=== PATIENT | male | born 1980 | race Caucasian/White ===

== ENCOUNTER 2020-09-07 08:12 | Emergency (ER) | payer SELFPAY ==
[2020-09-07 08:57] LABS: Absolute Lymphocytes (CBC) 1.5 K/uL (0.7-4.9); Basophils % 1.1 % (0-1.3); RBC Red Blood Cell Count 4.69 M/uL (4.33-5.43)
[2020-09-07] MEDS ORDERED: MORPHINE 4 MG/ML SYR ONE ×2 (09:02→11:42)
[2020-09-07] MEDS ORDERED: ONDANSETRON 4 MG/2 ML VIAL ONE (09:02)
[2020-09-07] MEDS ORDERED: NA CHLORIDE 0.9% 1,000 ML ONE (09:03)
[2020-09-07 09:09] LABS: Protime INR 0.92
[2020-09-07 09:21] LABS: ALT/SGPT 26 U/L (12-78); AST/SGOT 15 U/L (15-37); Albumin 3.5 g/dL (3.4-5.0); Alkaline Phosphatase 112 U/L (45-117); BUN Blood Urea Nitrogen 12 mg/dL (7-18); Bicarbonate 30 mmol/L (21-32); Bilirubin Direct < 0.1 mg/dL (0-0.2); Bilirubin Total 0.1 mg/dL (0.2-1.0); Glucose Level 107 mg/dL (74-106); Potassium 4.1 mmol/L (3.5-5.1); Protein, Total 6.9 g/dL (6.4-8.2); Sodium Level 140 mmol/L (136-145)
--- NOTE | 2020-09-07 10:12 | RAD REPORT ---
EXAM DESCRIPTION: CT - Head C Spine Cap Deneen Thomas - 09/07/2020 9:56 am CLINICAL HISTORY: PAIN, trip and fall, head, neck, chest and abdomen pain COMPARISON: No comparisons TECHNIQUE: Axial [address] head images were obtained. Axial [address] cervical spine images were obtaine d with sagittal and coronal reconstruction images reviewed. During dynamic enhancement of 100mL non-i onic contrast, axial 5 mm images of the chest, abdomen and pelvis were obtained. Biphasic technique p erformed of the abdomen and pelvis. All CT scans are performed using dose optimization technique as appropriate and may include automated exposure control or mA/KV adjustment according to patient size. FINDINGS: No intracranial hemorrhage, mass or edema. No midline shift or abnormal fluid collection. Mastoid air cells and paranasal sinuses are clear. No skull fracture. CT cervical spine imaging shows normal height. Normal alignment of the vertebrae. No disc space narro wing. No paraspinal mass or hematoma seen. Central canal detail is inherently limited. Concerns for t raumatic disc herniation or traumatic cord injury can be further addressed with MR imaging. CT chest shows no pneumothorax, pulmonary contusion or pleural fluid collection. No mediastinal hemat aurelio and the aorta and pulmonary arteries are unremarkable. No chest will mass or abnormal axillary fi nding. No acute rib fractures present. Patient has subacute fractures lateral left fifth and sixth ri bs. Callus formation is present around still visible fracture lines. CT abdomen and pelvis show no injury to solid abdominal viscera. Gallbladder and biliary tree are unr emarkable. No bowel injury or significant finding. Fluid distends the stomach. Gastric outlet obstruc tion is not suspected. Moderate stool volume is seen filling the right-side of the colon. No free air , free fluid or abnormal stranding. No urinary bladder abnormality. No other significant bone finding seen. No significant vascular finding. IMPRESSION: No significant CT Head finding. No significant CT Cervical Spine finding. Subacute lateral left fifth and sixth rib fractures. No acute or additional significant chest finding . No significant CT Abdomen and Pelvis finding.
--- NOTE | 2020-09-07 10:20 | EDPHYS ---
Physician Documentation [facility] Name: Matthew Patricia Age: 40 yrs Sex: Male : 1980 Arrival Date: 09/07/2020 Time: 08:27 Bed 13 Private MD: Gamal Medina HPI: 09/07 09:57 This 40 yrs old Male presents to ER via Wheelchair with complaints of Side calli Pain. 09:57 The patient presents with abdominal pain in the upper abdomen, in the lower abdomen. calli Onset: The symptoms/episode began/occurred 2 day(s) ago. The patient or guardian reports chest pain that is located primarily in the anterior chest wall, left supraclavicular area, left clavicle, anterior aspect of left upper chest, left lateral anterior chest, left lateral posterior chest and left breast. Onset: The symptoms/episode began/occurred 1 week(s) ago. The pain does not radiate. Associated signs and symptoms: The patient has no apparent associated signs or symptoms. The chest pain is described as aching. Modifying factors: The symptoms are alleviated by remaining still, rest, the symptoms are aggravated by deep breath, movement. Severity of pain: At its worst the pain was mild today. Historical: - Allergies: 08:32 No Known Allergies; tw2 - Home Meds: 08:32 None [Active]; tw2 - PMHx: 08:32 None; tw2 - PSHx: 08:32 None; left leg surgery; tw2 - Immunization history:: Adult Immunizations. - Social history:: Smoking status: Patient reports the use of cigarette tobacco products, smokes one pack cigarettes per day. Patient uses street drugs, Methamphetamine (Meth) "3 days ago". - Family history:: not pertinent. ROS: 09:57 Constitutional: Negative for fever, chills, and weight loss, Eyes: Negative for injury, calli pain, redness, and discharge, ENT: Negative for injury, pain, and discharge, Neck: Negative for injury, pain, and swelling, Respiratory: Negative for shortness of breath, cough, wheezing, and pleuritic chest pain, Back: Negative for injury and pain, : Negative for injury, bleeding, discharge, and swelling, MS/Extremity: Negative for injury and deformity, Skin: Negative for injury, rash, and discoloration, Neuro: Negative for headache, weakness, numbness, tingling, and seizure, Psych: Negative for depression, anxiety, suicide ideation, homicidal ideation, and hallucinations, Allergy/Immunology: Negative for hives, rash, and allergies, Endocrine: Negative for neck swelling, polydipsia, polyuria, polyphagia, and marked weight changes, Hematologic/Lymphatic: Negative for swollen nodes, abnormal bleeding, and unusual bruising. 09:57 Cardiovascular: Positive for chest pain, with movement, of the left clavicle, anterior aspect of left upper chest, left lateral anterior chest, left lateral posterior chest and left breast. 09:57 Abdomen/GI: Positive for abdominal pain, of the left upper quadrant and left lower quadrant. Exam: 09:57 Constitutional: This is a well developed, well nourished patient who is awake, alert, calli and in no acute distress. Head/Face: Normocephalic, atraumatic. Eyes: Pupils equal round and reactive to light, extra-ocular motions intact. Lids and lashes normal. Conjunctiva and sclera are non-icteric and not injected. Cornea within normal limits. Periorbital areas with no swelling, redness, or edema. ENT: Nares patent. No nasal discharge, no septal abnormalities noted. Tympanic membranes are normal and external auditory canals are clear. Oropharynx with no redness, swelling, or masses, exudates, or evidence of obstruction, uvula midline. Mucous membranes moist. Neck: Trachea midline, no thyromegaly or masses palpated, and no cervical lymphadenopathy. Supple, full range of motion without nuchal rigidity, or vertebral point tenderness. No Meningismus. Cardiovascular: Regular rate and rhythm with a normal S1 and S2. No gallops, murmurs, or rubs. Normal PMI, no JVD. No pulse deficits. Respiratory: Lungs have equal breath sounds bilaterally, clear to auscultation and percussion. No rales, rhonchi or wheezes noted. No increased work of breathing, no retractions or nasal flaring. Back: No spinal tenderness. No costovertebral tenderness. Full range of motion. Male : Normal genitalia with no discharge or lesions. Skin: Warm, dry with normal turgor. Normal color with no rashes, no lesions, and no evidence of cellulitis. MS/ Extremity: Pulses equal, no cyanosis. Neurovascular intact. Full, normal range of motion. Neuro: Awake and alert, GCS 15, oriented to person, place, time, and situation. Cranial nerves II-XII grossly intact. Motor strength 5/5 in all extremities. Sensory grossly intact. Cerebellar exam normal. Normal gait. Psych: Awake, alert, with orientation to person, place and time. Behavior, mood, and affect are within normal limits. 09:57 Chest/axilla: Inspection: no acute changes, Palpation: tenderness, that is mild, that is moderate, of the left lateral anterior chest and left lateral posterior chest. 09:57 Abdomen/GI: Inspection: abdomen appears normal, Bowel sounds: normal, Palpation: mild abdominal tenderness, in the left upper quadrant and left lower quadrant, Liver: no appreciated palpable abnormalities, Hernia: not appreciated. 10:02 ECG was reviewed by the Attending Physician. [facility] Vital Signs: 08:29 BP 112 / 79; Pulse 75; Resp 17; Temp 97.9(TE); Pulse Ox 100% on R/A; Weight 77.11 kg; tw2 Height 5 ft. 10 in. (177.80 cm); Pain 10; 08:29 Body Mass Index 24.39 (77.11 kg, 177.80 cm) tw2 MDM: 08:37 Patient medically screened. [facility] 09/07 08:39 Order name: Acetaminophen; Complete Time: 10:03 [facility] 09/07 08:39 Order name: Basic Metabolic Panel; Complete Time: 10:03 [facility] 09/07 08:39 Order name: CBC with Diff; Complete Time: 10:03 [facility] 09/07 08:39 Order name: ETOH Level; Complete Time: 10:03 [facility] 09/07 08:39 Order name: Hepatic Function; Complete Time: 10:03 [facility] 09/07 08:39 Order name: PT-INR; Complete Time: 10:03 [facility] 09/07 08:39 Order name: Ptt, Activated; Complete Time: 10:03 [facility] 09/07 08:39 Order name: Salicylate; Complete Time: 10:03 [facility] 09/07 08:39 Order name: CT Traumagram (Head C Spine CAP W Con) [facility] 09/07 10:20 Order name: INCENTIVE SPIROMETRY 09/07 08:39 Order name: EKG; Complete Time: 08:40 [facility] 09/07 08:39 Order name: EKG - Nurse/Tech; Complete Time: 09:11 [facility] 09/07 08:39 Order name: IV Saline Lock; Complete Time: [facility] 09/07 08:39 Order name: Labs collected and sent; Complete Time: [facility] EC:02 Rate is 66 beats/min. Rhythm is regular. QRS [place] is Normal. AL interval is normal. QRS calli interval is normal. QT interval is normal. No Q waves. T waves are Normal. No ST changes noted. Clinical impression: NSR w/ Non-specific ST/T Changes and No evidence of ischemia. Administered Medications: 08:50 Drug: NS 0.9% 1000 ml Route: IV; Rate: 1 bolus; Site: right forearm; em 10:00 Follow up: IV Status: Completed infusion; IV Intake: 1000ml em 08:50 Drug: Zofran (Ondansetron) 4 mg Route: IVP; Site: right forearm; em 09:11 Follow up: Response: No adverse reaction em 08:52 Drug: morphine 4 mg Route: IVP; Site: right forearm; em 09:11 Follow up: Response: No adverse reaction em 11:35 Drug: morphine 4 mg Route: IVP; Site: right forearm; em 11:44 Follow up: Response: Medication administered at discharge. em Disposition: 09/07/20 10:19 Discharged to Home. Impression: Fall (on) (from) other stairs and steps, Strain of muscle and tendon of back wall of thorax, Strain of muscle and tendon of front wall of thorax, Contusion of abdominal wall, Multiple fractures of ribs, left side. - Condition is Stable. - Discharge Instructions: Contusion, Chest Wall Pain, Rib Fracture, Incentive Spirometer, Chest Wall Pain, [id number]-im-[id number], Chest Contusion, [id number]-[id number], Rib Fracture, [id number]. - Prescriptions for Ibuprofen 600 mg Oral Tablet - take 1 tablet by ORAL route every 6 hours As needed take with food; 30 tablet. Tylenol- Codeine #3 300-30 mg Oral Tablet - take 2 tablets by ORAL route every 4-6 hours As needed; 20 tablet. Cyclobenzaprine 5 mg Oral Tablet - take 1 tablet by ORAL route 3 times per day As needed; 15 tablet. - Medication Reconciliation Form, Thank You Letter, Antibiotic Education, Prescription Opioid Use form. - Follow up: Private Physician; When: 2 - 3 days; Reason: Recheck today's complaints, Continuance of care, Re-evaluation by your physician. Follow up: Sorin Burgos MD; When: 2 - 3 days; Reason: Recheck today's complaints, Re-evaluation by your physician. - Problem is new. - Symptoms have improved. Signatures: Dispatcher [employer] Gamal Wen MD MD cha Munoz, Edgar, RN RN em Leonie Ashby RN RN tw2 Corrections: (The following items were deleted from the chart) 09:12 08:39 Suicide Screening ([place]) ordered. [facility] 11:35 10:19 09/07/2020 10:19 Discharged to Home. Impression: Fall (on) (from) other stairs em and steps; Strain of muscle and tendon of back wall of thorax; Strain of muscle and tendon of front wall of thorax; Contusion of abdominal wall; Multiple fractures of ribs, left side. Condition is Stable. Discharge Instructions: Contusion, Chest Wall Pain, Chest Wall Pain, [id number]-[id number], Chest Contusion, [id number]-[id number]. Prescriptions for Ibuprofen 600 mg Oral Tablet - take 1 tablet by ORAL route every 6 hours As needed take with food; 30 tablet, Tylenol-Codeine #3 300-30 mg Oral Tablet - take 2 tablets by ORAL route every 4-6 hours As needed; 20 tablet, Cyclobenzaprine 5 mg Oral Tablet - take 1 tablet by ORAL route 3 times per day As needed; 15 tablet. and Forms are Medication Reconciliation Form, Thank You Letter, Antibiotic Education, Prescription Opioid Use. Follow up: Private Physician; When: 2 - 3 days; Reason: Recheck today's complaints, Continuance of care, Re-evaluation by your physician. Follow up: Sorin Burgos; When: 2 - 3 days; Reason: Recheck today's complaints, Re-evaluation by your physician. Problem is new. Symptoms have improved. [facility] 11:45 11:35 09/07/2020 10:19 Discharged to Home. Impression: Fall (on) (from) other stairs em and steps; Strain of muscle and tendon of back wall of thorax; Strain of muscle and tendon of front wall of thorax; Contusion of abdominal wall; Multiple fractures of ribs, left side. Condition is Stable. Discharge Instructions: Contusion, Chest Wall Pain, Chest Wall Pain, Niby-rk-[id number], Chest Contusion, Dplx-[id number], Rib Fracture, Incentive Spirometer, Rib Fracture, [id number]-[id number]. Prescriptions for Ibuprofen 600 mg Oral Tablet - take 1 tablet by ORAL route every 6 hours As needed take with food; 30 tablet, Tylenol-Codeine #3 300-30 mg Oral Tablet - take 2 tablets by ORAL route every 4-6 hours As needed; 20 tablet, Cyclobenzaprine 5 mg Oral Tablet - take 1 tablet by ORAL route 3 times per day As needed; 15 tablet. and Forms are Medication Reconciliation Form, Thank You Letter, Antibiotic Education, Prescription Opioid Use. Follow up: Private Physician; When: 2 - 3 days; Reason: Recheck today's complaints, Continuance of care, Re-evaluation by your physician. Follow up: Sorin Burgos; When: 2 - 3 days; Reason: Recheck today's complaints, Re-evaluation by your physician. Problem is new. Symptoms have improved. em
--- NOTE | 2020-09-07 10:20 | ER ---
Nurse's Notes [facility] Name: Matthew Patricia Age: 40 yrs Sex: Male : 1980 Arrival Date: 09/07/2020 Time: 08:27 Bed 13 Private MD: Diagnosis: Fall (on) (from) other stairs and steps;Strain of muscle and tendon of back wall of thorax;Strain of muscle and tendon of front wall of thorax;Contusion of abdominal wall;Multiple fractures of ribs, left side Presentation: 09/07 08:29 Chief complaint: Patient states: i hurt my ribs on the left side about 3 weeks ago. it tw2 has gotten more and more intense. i was replacing a spicket and i bee came out and when i tried to get away i tripped and landed on a pile of limestone on the left side of my ribs, then this past Sunday i tripped and fell over a bucket. also i slipped on the stairs because of the rain. Coronavirus screen: At this time, the client does not indicate any symptoms associated with coronavirus-19. Ebola Screen: Patient denies travel to an Ebola-affected area in the 21 days before illness onset. Initial Sepsis Screen: Does the patient meet any 2 criteria? No. Patient's initial sepsis screen is negative. Does the patient have a suspected source of infection? No. Patient's initial sepsis screen is negative. Risk Assessment: Do you want to hurt yourself or someone else? Patient reports no desire to harm self or others. Onset of symptoms. 08:29 Method Of Arrival: Wheelchair tw2 08:29 Acuity: NANDA 3 tw2 Triage Assessment: 08:32 General: Appears uncomfortable, slender, Behavior is calm, cooperative, appropriate for tw2 age. Pain: Complains of pain in left side. Historical: - Allergies: 08:32 No Known Allergies; tw2 - Home Meds: 08:32 None [Active]; tw2 - PMHx: 08:32 None; tw2 - PSHx: 08:32 None; left leg surgery; tw2 - Immunization history:: Adult Immunizations. - Social history:: Smoking status: Patient reports the use of cigarette tobacco products, smokes one pack cigarettes per day. Patient uses street drugs, Methamphetamine (Meth) "3 days ago". - Family history:: not pertinent. Screenin:37 Abuse screen: Denies threats or abuse. Nutritional screening: No deficits noted. ss Tuberculosis screening: No symptoms or risk factors identified. Fall Risk Fall in past 12 months (25 points). Assessment: 08:45 General: Appears in no apparent distress. comfortable, Behavior is calm, cooperative, em appropriate for age, Reports denies injury to head, denies LOC and other injuries. Pain: Complains of pain in left lateral anterior chest Pain currently is 10 out of 10 on a pain scale. Neuro: Level of Consciousness is awake, alert, Oriented to person, place, time, situation. Cardiovascular: Capillary refill < 3 seconds Patient's skin is warm and dry. Respiratory: Reports pain with respiration since 3 week ago Airway is patent Respiratory effort is even, unlabored, Respiratory pattern is regular, symmetrical. GI: Abdomen is flat, Reports lower abdominal pain, Patient currently denies nausea. Derm: Skin is intact, is healthy with good turgor, Skin is pink, warm \\T\\ dry. Musculoskeletal: Capillary refill < 3 seconds, Range of motion: intact in all extremities. Vital Signs: 08:29 BP 112 / 79; Pulse 75; Resp 17; Temp 97.9(TE); Pulse Ox 100% on R/A; Weight 77.11 kg; tw2 Height 5 ft. 10 in. (177.80 cm); Pain 10/10; 08:29 Body Mass Index 24.39 (77.11 kg, 177.80 cm) tw2 ED Course: 08:27 Patient arrived in ED. ds1 08:31 Triage completed. tw2 08:32 Arm band placed on. tw2 08:37 Gamal Larose MD is Attending Physician. calli 08:37 Bed in low position. Call light in reach. Pulse ox on. NIBP on. ss 08:40 Yahir Recio, RN is Primary Nurse. em 08:40 Inserted saline lock: 20 gauge in right forearm, using aseptic technique. Blood tw2 collected. 09:09 EKG done, by ED staff, reviewed by Gamal Larose MD. em 09:56 CT Traumagram (Head C Spine CAP W Con) In Process Unspecified. EDMS 10:19 Sorin Burgos MD is Referral Physician. calli 11:43 Primary Nurse role handed off by Yahir Recio, TOAN em Administered Medications: 08:50 Drug: NS 0.9% 1000 ml Route: IV; Rate: 1 bolus; Site: right forearm; em 10:00 Follow up: IV Status: Completed infusion; IV Intake: 1000ml em 08:50 Drug: Zofran (Ondansetron) 4 mg Route: IVP; Site: right forearm; em 09:11 Follow up: Response: No adverse reaction em 08:52 Drug: morphine 4 mg Route: IVP; Site: right forearm; em 09:11 Follow up: Response: No adverse reaction em 11:35 Drug: morphine 4 mg Route: IVP; Site: right forearm; em 11:44 Follow up: Response: Medication administered at discharge. em Intake: 10:00 IV: 1000ml; Total: 1000ml. em Outcome: 10:19 Discharge ordered by . calli 11:35 Patient left the ED. em 11:45 Patient left the ED. em Signatures: Dispatcher [employer] Gamal Wen MD MD cha Munoz, Edgar, RN RN Caro Barnes ds1 Blanca Taylor RN RN ss Wise, Tara, RN RN tw2
[2020-09-07 11:39] VITALS: BP 112/79; TEMP 97.9; O2SAT 100
--- NOTE | 2020-09-09 07:25 | EKG ---
Test Date: 2020-09-07 Test Time: 09:09:01 Folder Tier: ESTEE MEASUREMENT RESULTS: Intervals: Rate: 66 RI: 140 QRSD: 94 QT: 388 QTc: 406 Backus: P: 75 RI: 140 QRS: 79 T: 65 INTERPRETIVE STATEMENTS: Normal sinus rhythm Possible Left atrial enlargement Borderline ECG Compared to ECG 02/07/2013 15:13:29 No significant changes Electronically Signed On 09-09-20 07:18:57 CDT by Andrae Ge
== END 2020-09-07 11:45 | disposition home or self-care (01) ==
LOC: ER 08:12
DX: S22.42XA Multiple fractures of ribs, left side, initial encounter for closed fracture (principal); S29.012A Strain of muscle and tendon of back wall of thorax, initial encounter; S29.011A Strain of muscle and tendon of front wall of thorax, initial encounter; S30.1XXA Contusion of abdominal wall, initial encounter; W10.9XXA Fall (on) (from) unspecified stairs and steps, initial encounter; F17.210 Nicotine dependence, cigarettes, uncomplicated
CPT/HCPCS: 36415; 70450; 71260; 72125; 74177; 80048; 80076; 80320; 80329; 85025; 85610; 85730; 93005; 96361; 96374; 96375; 99284; J2405; J7030; Q9967

== ENCOUNTER 2021-02-18 12:05 | Emergency (ER) | payer SELFPAY ==
--- NOTE | 2021-02-18 13:53 | RAD REPORT ---
EXAM DESCRIPTION: RAD - Elbow Left 2 View - 02/18/2021 1:37 pm CLINICAL HISTORY: PAIN COMPARISON: No comparisons FINDINGS: No acute fracture. No malalignment. No significant focal degenerative changes. IMPRESSION: No acute osseous abnormality involving the left elbow.
--- NOTE | 2021-02-18 13:55 | RAD REPORT ---
EXAM DESCRIPTION: RAD - Foot Right 3 View - 02/18/2021 1:37 pm CLINICAL HISTORY: PAIN COMPARISON: FOOT AP LAT dated 03/10/2011 FINDINGS: Nondisplaced obliquely oriented fracture of the middle third of the calcaneus. The fractur e likely extends to the subtalar joint. There is some lucency within the anterior process of the calc aneus as well. This is not as well characterized . IMPRESSION: Nondisplaced calcaneal fracture. CT could clarify the full extent of the fracture.
[2021-02-18] MEDS ORDERED: HYDROCODONE/APAP 7.5/325 MG TAB ONE (14:55)
--- NOTE | 2021-02-18 14:59 | EDPHYS ---
Physician Documentation [facility] Name: Matthew Patricia Age: 41 yrs Sex: Male : 1980 Arrival Date: 02/18/2021 Time: 12:07 Bed 25 Private MD: ED Physician Gabriel Martin HPI: 02/18 16:06 This 41 yrs old Male presents to ER via Wheelchair with complaints of Foot kb Injury, Elbow Injury. 16:06 The patient presents with pain, that is acute. The complaints affect the left elbow and kb heel of right foot. Context: The problem was sustained outdoors, resulted from the patient falling, from roof, the patient is not able to bear weight, can ambulate using a cane. Onset: The symptoms/episode began/occurred yesterday. Modifying factors: The symptoms are alleviated by nothing. the symptoms are aggravated by weight bearing. Associated signs and symptoms: Pertinent positives: swelling. Treatment prior to arrival includes: no previous treatment. Severity of symptoms: At their worst the symptoms were mild, moderate, in the emergency department the symptoms are unchanged. The patient has not experienced similar symptoms in the past. The patient has not recently seen a physician. Pt states he fell off of a roof yesterday and landed on right heel. States he hasn't been able to bear weight so he wanted to get it checked. Also reports pain to left elbow.. Historical: - Allergies: 12:27 No Known Allergies; jl7 - Home Meds: 12:27 None [Active]; jl7 - PMHx: 12:27 None; jl7 - PSHx: 12:27 left fibula; jl7 - Immunization history:: Client reports having NOT received the Covid vaccine. - Social history:: Smoking status: Patient reports the use of cigarette tobacco products, smokes one-half pack cigarettes per day. ROS: 16:03 Constitutional: Negative for fever, chills, and weight loss. kb 16:03 MS/extremity: Positive for pain, tenderness, of the heel of right foot and left elbow. 16:03 All other systems are negative. Exam: 16:03 Constitutional: This is a well developed, well nourished patient who is awake, alert, kb and in no acute distress. Head/Face: Normocephalic, atraumatic. ENT: Moist Mucous membranes Neck: Trachea midline, no thyromegaly or masses palpated, and no cervical lymphadenopathy. Supple, full range of motion without nuchal rigidity, or vertebral point tenderness. No Meningismus. Respiratory: Respirations even and unlabored. No increased work of breathing, no retractions or nasal flaring. Back: No spinal tenderness. No costovertebral tenderness. Full range of motion. Skin: Warm, dry with normal turgor. Normal color. Neuro: Awake and alert, GCS 15, oriented to person, place, time, and situation. Moves all extremities. Normal gait. Psych: Awake, alert, with orientation to person, place and time. Behavior, mood, and affect are within normal limits. 16:03 Musculoskeletal/extremity: Extremities: grossly normal except: noted in the heel of right foot: pain, swelling, tenderness, noted in the left elbow: pain, ROM: intact in all extremities, Circulation is intact in all extremities. Sensation intact. Weight bearing: is unable to bear weight. Vital Signs: 12:25 BP 110 / 76; Pulse 91; Resp 17; Temp 98.8; Pulse Ox 99% ; Weight 72.57 kg; Height 5 ft. jl7 10 in. (177.80 cm); Pain 7/10; 13:00 BP 117 / 83; Pulse 90; Resp 18; Pulse Ox 100% on R/A; Pain 6/10; ld1 14:49 BP 126 / 80; Pulse 86; Resp 18; Pulse Ox 100% on R/A; ld1 12:25 Body Mass Index 22.96 (72.57 kg, 177.80 cm) jl7 MDM: 12:54 Patient medically screened. kb 16:05 Data reviewed: vital signs, nurses notes. Data interpreted: Pulse oximetry: on room air kb is 100 %. Interpretation: normal. Counseling: I had a detailed discussion with the patient and/or guardian regarding: the historical points, exam findings, and any diagnostic results supporting the discharge/admit diagnosis, radiology results, the need for outpatient follow up, a orthopedic surgeon, to return to the emergency department if symptoms worsen or persist or if there are any questions or concerns that arise at home. 02/18 12:59 Order name: XRAY Foot RIGHT 3 View; Complete Time: 13:59 ld1 02/18 12:59 Order name: XRAY Elbow LEFT 2 view; Complete Time: 13:59 ld1 02/18 14:08 Order name: Short Leg Splint; Complete Time: 14:49 kb 02/18 14:08 Order name: Crutches; Complete Time: 14:49 kb Administered Medications: 14:33 Drug: [place] (HYDROcodone-acetaminophen) (7.5 mg-325 mg) 1 tabs Route: PO; ld1 Disposition: 02/19 12:51 Co-signature as Attending Physician, Gabriel Martin MD I agree with the assessment and kdr plan of care. Disposition Summary: 02/18/21 14:59 Discharge Ordered Location: Home kb Condition: Stable kb Diagnosis - Right nondisplaced calcaneal fracture kb Followup: kb - With: Emergency Department - When: As needed - Reason: Worsening of condition Followup: kb - With: Private Physician - When: 2 - 3 days - Reason: Recheck today's complaints, Continuance of care, Re-evaluation by your physician Discharge Instructions: - Discharge Summary Sheet kb - Calcaneal Fracture Repair Surgery, Care After kb Forms: - Medication Reconciliation Form kb - Thank You Letter kb - Antibiotic Education kb - Prescription Opioid Use kb Prescriptions: - Diclofenac Sodium 75 mg Oral tablet,delayed release (DR/EC) - take 1 tablet by ORAL route 2 times per day As needed; 30 tablet; Refills: 0, kb Product Selection Permitted Signatures: Dispatcher [employer] EDMS Precious Ansari, ECOLOGICAL MODELER-C ECOLOGICAL MODELER-Bolivarb Gabriel Martin MD MD kdr Della Goldstein RN RN jl7 Alda Macias RN RN ld1 Corrections: (The following items were deleted from the chart) 02/18 12:28 12:27 PSHx: None; rajesh jlCruz
--- NOTE | 2021-02-18 14:59 | ER ---
Nurse's Notes [facility] Name: Matthew Patricia Age: 41 yrs Sex: Male : 1980 Arrival Date: 02/18/2021 Time: 12:07 Bed 25 Private MD: Diagnosis: Right nondisplaced calcaneal fracture Presentation: 02/18 12:25 Chief complaint: Patient states: Slid off first story roof yesterday, c/o right foot jl7 pain and left elbow pain, denies pain anywhere else. Coronavirus screen: At this time, the client does not indicate any symptoms associated with coronavirus-19. Ebola Screen: No symptoms or risks identified at this time. Initial Sepsis Screen: Does the patient meet any 2 criteria? No. Patient's initial sepsis screen is negative. Does the patient have a suspected source of infection? No. Patient's initial sepsis screen is negative. Risk Assessment: Do you want to hurt yourself or someone else? Patient reports no desire to harm self or others. Onset of symptoms was February 17, 2021. Care prior to arrival: None. 12:25 Method Of Arrival: Wheelchair jl7 12:25 Acuity: NANDA 4 jl7 Historical: - Allergies: 12:27 No Known Allergies; jl7 - Home Meds: 12:27 None [Active]; jl7 - PMHx: 12:27 None; jl7 - PSHx: 12:27 left fibula; jl7 - Immunization history:: Client reports having NOT received the Covid vaccine. - Social history:: Smoking status: Patient reports the use of cigarette tobacco products, smokes one-half pack cigarettes per day. Screenin:00 Abuse screen: Denies threats or abuse. Denies injuries from another. Nutritional ld1 screening: No deficits noted. Tuberculosis screening: No symptoms or risk factors identified. Fall Risk None identified. Assessment: 13:00 General: Appears in no apparent distress. comfortable, Behavior is calm, cooperative, ld1 appropriate for age. Pain: Complains of pain in right foot and left elbow Pain does not radiate. Pain currently is 7 out of 10 on a pain scale. Quality of pain is described as throbbing, Pain began 1 day ago. Is continuous. Neuro: Level of Consciousness is awake, alert, obeys commands, Oriented to person, place, time, situation. Cardiovascular: Capillary refill < 3 seconds Patient's skin is warm and dry. Respiratory: Airway is patent Respiratory effort is even, unlabored, Respiratory pattern is regular, symmetrical. GI: Abdomen is flat, non-distended. : No signs and/or symptoms were reported regarding the genitourinary system. EENT: No signs and/or symptoms were reported regarding the EENT system. Derm: No signs and/or symptoms reported regarding the dermatologic system. Musculoskeletal: Swelling present in right foot Reports pain in right foot and left elbow. 14:49 Reassessment: Patient appears in no apparent distress at this time. Patient and/or ld1 family updated on plan of care and expected duration. Pain level reassessed. Patient is alert, oriented x 3, equal unlabored respirations, skin warm/dry/pink. Vital Signs: 12:25 BP 110 / 76; Pulse 91; Resp 17; Temp 98.8; Pulse Ox 99% ; Weight 72.57 kg; Height 5 ft. jl7 10 in. (177.80 cm); Pain 7/10; 13:00 BP 117 / 83; Pulse 90; Resp 18; Pulse Ox 100% on R/A; Pain 6/10; ld1 14:49 BP 126 / 80; Pulse 86; Resp 18; Pulse Ox 100% on R/A; ld1 12:25 Body Mass Index 22.96 (72.57 kg, 177.80 cm) jl7 ED Course: 12:07 Patient arrived in ED. as 12:27 Triage completed. jl7 12:27 Arm band placed on right wrist. jl7 12:54 Precious Ansari FNP-C is [facility]. kb 12:54 Gabriel Martin MD is Attending Physician. kb 12:58 Alda Macias, TOAN is Primary Nurse. ld1 13:00 Patient has correct armband on for positive identification. Bed in low position. Call ld1 light in reach. Side rails up X 1. Pulse ox on. NIBP on. Door closed. Noise minimized. 13:00 No provider procedures requiring assistance completed. ld1 13:37 XRAY Foot RIGHT 3 View In Process Unspecified. EDMS 13:37 XRAY Elbow LEFT 2 view In Process Unspecified. EDMS 15:07 Patient did not have IV access during this emergency room visit. ld1 Administered Medications: 14:33 Drug: [place] (HYDROcodone-acetaminophen) (7.5 mg-325 mg) 1 tabs Route: PO; ld1 Outcome: 14:59 Discharge ordered by MD. browne 15:07 Discharged to home ambulatory, with crutches, with family. ld1 15:07 Condition: stable 15:07 Discharge instructions given to patient, family, Instructed on discharge instructions, follow up and referral plans. medication usage, Demonstrated understanding of instructions, follow-up care, medications, Prescriptions given X 1. 15:08 Patient left the ED. ld1 Signatures: Dispatcher [employer] EDWI Precious Ansari, PHOTOGRAPHY EDITOR-C PHOTOGRAPHY EDITOR-Deepa Solorio Jahala RN RN jl7 Alda Macias RN RN ld1 Corrections: (The following items were deleted from the chart) 12:28 12:27 PSHx: None; rajesh jlCruz
[2021-02-18 15:12] VITALS: TEMP 98.8
[2021-02-18 15:13] VITALS: O2SAT 100
[2021-02-18 15:14] VITALS: BP 126/80
== END 2021-02-18 15:08 | disposition home or self-care (01) ==
LOC: ER 12:05
PROC: 2W3QX1Z Immobilization of Right Lower Leg using Splint (ICD-10-PCS; principal; 2021-02-18)
DX: S92.001A Unspecified fracture of right calcaneus, initial encounter for closed fracture (principal); M25.522 Pain in left elbow; W13.2XXA Fall from, out of or through roof, initial encounter; F17.210 Nicotine dependence, cigarettes, uncomplicated
CPT/HCPCS: 99284

== ENCOUNTER 2022-04-16 13:23 | Emergency (ER) | payer SELFPAY ==
--- OUTSIDE RECORDS SUMMARY | 2022-04-16 13:24 | XMS REPORT | Continuity of Care Document ---
:1980 Author Organization [facility] t Address [address] [place] [address] Dr. Raza. [address] [place] [id number] Care Team Providers Name Role Phone Unavailable Unavailable Unavailable Problems This patient has no known problems. Allergies, Adverse Reactions, Alerts This patient has no known allergies or adverse reactions. Medications This patient has no known medications. Procedures This patient has no known procedures. Encounters Start End Encounter Admission Attending Care Care Encounter Source Date/Time Date/Time Type Type Clinicians Facility Department ID 2022-03-01 2022-03-01 Outpatient [facility] [id number] 13:12:45 13:12:45 [id number] [address] [place] Results This patient has no known results.
[2022-04-16] MEDS ORDERED: NA CHLORIDE 0.9% 1,000 ML ONE (14:00)
[2022-04-16] MEDS ORDERED: ASPIRIN 81 MG CHEWABLE TABLET ONE (14:00)
[2022-04-16] MEDS ORDERED: KETOROLAC 30 MG/ML INJ ONE (14:00)
[2022-04-16 14:27] LABS: Absolute Lymphocytes (CBC) 1.6 K/uL (0.7-4.9); Hematocrit 39.2 % (39.6-49.0); Lymphocytes % 28.1 % (15.3-44.8); MPV 8.3 fL (7.6-11.3); RBC Red Blood Cell Count 4.21 M/uL (4.33-5.43)
--- NOTE | 2022-04-16 14:34 | RAD REPORT ---
EXAM DESCRIPTION: RAD - Chest Single View - 04/16/2022 2:28 pm CLINICAL HISTORY: CHEST PAIN COMPARISON: None FINDINGS: Lines: None. Lungs: No evidence of edema or pneumonia. Pleural: No significant pleural effusions or pneumothorax. Cardiac: The heart size is within normal limits. Mediastinum: Within normal limits. Bones: No acute fractures. Other: None IMPRESSION: No acute cardiopulmonary disease.
[2022-04-16 14:39] LABS: Protime INR 0.94
[2022-04-16 14:51] LABS: Magnesium 1.7 mg/dL (1.6-2.4); Potassium 3.8 mmol/L (3.5-5.1); Troponin High Sensitivity 4.2 pg/mL (<58.9)
--- NOTE | 2022-04-16 18:09 | ER ---
Nurse's Notes [facility] Name: Matthew Patricia Age: 42 yrs Sex: Male : 1980 Arrival Date: 04/16/2022 Time: 13:23 Bed 10 Private MD: Diagnosis: Chest pain, unspecified Presentation: 04/16 13:48 Chief complaint: Patient states: Left sided CP since Sunday, moved to left scapular jl7 area, reports pain worse with movement and coughing. Coronavirus screen: Vaccine status: Patient reports being unvaccinated. At this time, the client does not indicate any symptoms associated with coronavirus-19. Ebola Screen: No symptoms or risks identified at this time. Initial Sepsis Screen: Does the patient meet any 2 criteria? No. Patient's initial sepsis screen is negative. Does the patient have a suspected source of infection? No. Patient's initial sepsis screen is negative. Risk Assessment: Do you want to hurt yourself or someone else? Patient reports no desire to harm self or others. Onset of symptoms was April 14, 2022. 13:48 Method Of Arrival: Ambulatory [facility] 13:48 Acuity: NANDA 3 jl7 Triage Assessment: 13:49 General: Appears in no apparent distress. uncomfortable, Behavior is calm, cooperative, jl7 appropriate for age. Pain: Complains of pain in anterior aspect of left upper chest Pain currently is 4 out of 10 on a pain scale. at worst was 10 out of 10 on a pain scale. Cardiovascular: Patient's skin is warm and dry. Historical: - Allergies: 13:49 No Known Allergies; jl7 - Home Meds: 13:49 None [Active]; jl7 - PMHx: 13:49 None; jl7 - PSHx: 13:49 left fibula; jl7 - Immunization history:: Client reports having NOT received the Covid vaccine. - Social history:: Smoking status: Patient reports the use of cigarette tobacco products, smokes one-half pack cigarettes per day. Screenin:49 Abuse screen: Denies threats or abuse. Denies injuries from another. Nutritional hb screening: No deficits noted. Tuberculosis screening: No symptoms or risk factors identified. Fall Risk None identified. Assessment: 14:02 General: Appears in no apparent distress. Behavior is calm, cooperative. Pain: Pain hb currently is 5 out of 10 on a pain scale. at worst was 10 out of 10 on a pain scale. Neuro: Level of Consciousness is awake, alert, obeys commands, Oriented to person, place, time, situation. Cardiovascular: Reports chest pain, Patient's skin is warm and dry. Respiratory: Respiratory effort is even, unlabored, Respiratory pattern is regular, symmetrical. GI: No signs and/or symptoms were reported involving the gastrointestinal system. : No signs and/or symptoms were reported regarding the genitourinary system. EENT: No signs and/or symptoms were reported regarding the EENT system. Derm: Skin is pink, warm \T\ dry. Musculoskeletal: No signs and/or symptoms reported regarding the musculoskeletal system. 15:59 Reassessment: Patient appears in no apparent distress at this time. Patient and/or hb family updated on plan of care and expected duration. Pain level reassessed. Patient is alert, oriented x 3, equal unlabored respirations, skin warm/dry/pink. 17:38 Reassessment: Patient appears in no apparent distress at this time. Patient and/or hb family updated on plan of care and expected duration. Pain level reassessed. Patient is alert, oriented x 3, equal unlabored respirations, skin warm/dry/pink. Vital Signs: 13:48 BP 114 / 71; Pulse 84; Resp 17; Temp 97.9; Pulse Ox 100% on R/A; Weight 81.65 kg; jl7 Height 5 ft. 10 in. (177.80 cm); Pain 4/10; 15:59 BP 103 / 68; Pulse 67; Resp 16; Pulse Ox 99% on R/A; Pain 5/10; hb 17:30 BP 124 / 74; Pulse 65; Resp 15; Pulse Ox 99% on R/A; Pain 3/10; hb 13:48 Body Mass Index 25.83 (81.65 kg, 177.80 cm) jl7 ED Course: 13:23 Patient arrived in ED. am2 13:25 Gamal Ruiz PA is PHCP. cp 13:25 Chris Tomlinson DO is Attending Physician. cp 13:38 Keke Christensen, RN is Primary Nurse. vg1 13:41 Anita Castellano, RN is Primary Nurse. hb 13:49 Triage completed. jl7 13:49 Arm band placed on right wrist. jl7 14:10 Patient maintains SpO2 saturation greater than 95% on room air. hb 14:14 Inserted saline lock: 20 gauge in right antecubital area, using aseptic technique. hb Blood collected. 14:15 XRAY Chest (1 view) Sent. hb 14:30 XRAY Chest (1 view) In Process Unspecified. EDMS 14:49 Patient has correct armband on for positive identification. hb 14:49 No provider procedures requiring assistance completed. hb 18:08 Griffin Ritchie MD is Referral Physician. cp 18:18 IV discontinued, intact, bleeding controlled, No redness/swelling at site. hb Administered Medications: 14:15 Drug: Ketorolac 15 mg Route: IVP; Site: right antecubital; hb 15:00 Follow up: Response: No adverse reaction hb 14:15 Drug: NS 0.9% 1000 ml Route: IV; Rate: 1000 ml/hr; Site: right antecubital; hb 15:22 Follow up: Response: No adverse reaction; IV Status: Completed infusion; IV Intake: hb 1000ml 14:16 Drug: Aspirin Chewable Tablet 324 mg Route: PO; hb 15:10 Follow up: Response: No adverse reaction hb Medication: 14:49 VIS not applicable for this client. hb Intake: 15:22 IV: 1000ml; Total: 1000ml. hb Outcome: 18:08 Discharge ordered by . cp 18:18 Discharged to home ambulatory. hb 18:18 Condition: stable 18:18 Discharge instructions given to patient, Instructed on discharge instructions, follow up and referral plans. medication usage, Demonstrated understanding of instructions, follow-up care, medications, Prescriptions given X 1. 18:19 Patient left the ED. hb Signatures: Dispatcher [employer] EDSD Gamal Ruiz PA PA cp Anita Castellano, RN RN Della Patel RN RN jl7 Vanessa Vaughn Victoria, RN RN vg1
--- NOTE | 2022-04-16 18:09 | EDPHYS ---
Physician Documentation [facility] Name: Matthew Patricia Age: 42 yrs Sex: Male : 1980 Arrival Date: 04/16/2022 Time: 13:23 Bed 10 Private MD: ED Physician Chris Tomlinson HPI: 04/16 13:55 This 42 yrs old Male presents to ER via Ambulatory with complaints of Chest Pain - 2 cp days, Back Pain. 13:55 The patient or guardian reports chest pain that is located primarily in the anterior cp chest wall, left. Onset: 2 day(s) ago. 13:55 The pain radiates to left back. cp 13:55 Associated signs and symptoms: Pertinent negatives: abdominal pain, cough, diaphoresis, cp dizziness, lower extremity pain, lower extremity swelling, shortness of breath, fever. 13:55 The chest pain is described as waxing and waning. cp 13:55 Duration: The patient or guardian reports a single episode, that is still ongoing, and cp worsening. Modifying factors: the symptoms are aggravated by cough, deep breath, movement. Historical: - Allergies: 13:49 No Known Allergies; jl7 - Home Meds: 13:49 None [Active]; jl7 - PMHx: 13:49 None; jl7 - PSHx: 13:49 left fibula; jl7 - Immunization history:: Client reports having NOT received the Covid vaccine. - Social history:: Smoking status: Patient reports the use of cigarette tobacco products, smokes one-half pack cigarettes per day. ROS: 14:00 Constitutional: Negative for body aches, chills, fever, poor PO intake. cp 14:00 Cardiovascular: Positive for chest pain, Negative for edema, palpitations. cp 14:00 Eyes: Negative for injury, pain, redness, and discharge. cp 14:00 ENT: Negative for drainage from ear(s), ear pain, sore throat, difficulty swallowing, difficulty handling secretions. 14:00 Neck: Negative for pain with movement, pain at rest, stiffness. 14:00 Respiratory: Negative for cough, shortness of breath, wheezing. 14:00 Abdomen/GI: Negative for abdominal pain, nausea, vomiting, and diarrhea. 14:00 Back: Positive for radiated pain, of the left scapular area and left subscapular area, Negative for injury or acute deformity, decreased range of motion. 14:00 Neuro: Negative for altered mental status, dizziness, headache, numbness, syncope, weakness. 14:00 All other systems are negative. cp Exam: 14:05 Constitutional: The patient appears in no acute distress, alert, awake. cp 14:05 Head/Face: Normocephalic, atraumatic. cp 14:05 Eyes: Periorbital structures: appear normal, Conjunctiva: normal, no exudate, no cp injection, Sclera: no appreciated abnormality, Lids and lashes: appear normal, bilaterally. 14:05 ENT: External ear(s): are unremarkable, Nose: is normal, Mouth: Lips: moist, Oral mucosa: pink and intact, moist, Posterior pharynx: Airway: no evidence of obstruction, patent. 14:05 Neck: ROM/movement: is normal, is supple, without pain, no range of motions limitations. 14:05 Chest/axilla: Inspection: normal, Palpation: is normal, no crepitus, no tenderness. 14:05 Cardiovascular: Rate: normal, Rhythm: regular. 14:05 Respiratory: the patient does not display signs of respiratory distress, Respirations: normal, no use of accessory muscles, no retractions, labored breathing, is not present, Breath sounds: are clear throughout, no decreased breath sounds, no stridor, no wheezing. 14:05 Abdomen/GI: Inspection: abdomen appears normal, Palpation: abdomen is soft and non-tender, in all quadrants. 14:05 Back: pain, that is mild, of the left scapular area and left subscapular area, ROM is normal. 14:05 Skin: cellulitis, is not appreciated, no rash present. 14:05 Neuro: Orientation: to person, place \T\ time. Mentation: is normal, Cerebellar function: is grossly normal, Motor: moves all fours, strength is normal, Sensation: is normal. 14:42 ECG was reviewed by the Attending Physician. cp 17:17 ECG was reviewed by the Attending Physician. Vital Signs: 13:48 BP 114 / 71; Pulse 84; Resp 17; Temp 97.9; Pulse Ox 100% on R/A; Weight 81.65 kg; jl7 Height 5 ft. 10 in. (177.80 cm); Pain 4/10; 15:59 BP 103 / 68; Pulse 67; Resp 16; Pulse Ox 99% on R/A; Pain 5/10; hb 17:30 BP 124 / 74; Pulse 65; Resp 15; Pulse Ox 99% on R/A; Pain 3/10; hb 13:48 Body Mass Index 25.83 (81.65 kg, 177.80 cm) jl7 MDM: 13:39 Patient medically screened. cp 18:08 The patient was given aspirin in the Emergency Department. cp 18:08 Data reviewed: vital signs, nurses notes, lab test result(s), EKG, radiologic studies, cp plain films. Test interpretation: by ED physician or midlevel provider: ECG, plain radiologic studies. Response to treatment: the patient's symptoms have markedly improved after treatment, Pain improved. Discussed results of labs, EKG and radiology studies. Normal troponin results and normal EKG. Patient with low cardiac risk factors. Will discharge to home and recommend outpatient cardiac f/u. 04/16 13:52 Order name: Basic Metabolic Panel; Complete Time: 15:00 04/16 15:00 Interpretation: Normal except: GLUC 134; CA 8.4. cp 04/16 13:52 Order name: CBC with Diff; Complete Time: 15:00 04/16 15:00 Interpretation: Normal except: RBC 4.21; HGB 13.2; HCT 39.2; EOSINOPHIL % 9.8; BASO% cp 1.7; EOSA 0.6. 04/16 13:52 Order name: D-Dimer; Complete Time: 15:00 cp 04/16 15:29 Interpretation: D-DIMER 430; Reviewed. cp 04/16 13:52 Order name: Magnesium; Complete Time: 15:00 cp 04/16 13:52 Order name: PT-INR; Complete Time: 15:00 cp 04/16 13:52 Order name: Troponin HS; Complete Time: 15:00 04/16 15:29 Interpretation: Within normal limits: Troponin HS 4.2. 04/16 13:52 Order name: XRAY Chest (1 view); Complete Time: 15:00 cp 04/16 13:52 Order name: EKG; Complete Time: 13:52 cp 04/16 13:52 Order name: Cardiac monitoring; Complete Time: 14:15 cp 04/16 13:52 Order name: EKG - Nurse/Tech; Complete Time: 14:44 cp 04/16 17:08 Order name: Troponin High Sensitivity; Complete Time: 18:07 cp 04/16 13:52 Order name: IV Saline Lock; Complete Time: 14:15 cp 04/16 13:52 Order name: Labs collected and sent; Complete Time: 14:15 cp 04/16 13:52 Order name: O2 Per Protocol; Complete Time: 14:15 cp 04/16 13:52 Order name: O2 Sat Monitoring; Complete Time: 14:15 cp 04/16 17:08 Order name: EKG - Nurse/Tech; Complete Time: 17:19 cp EC:42 Rate is 62 beats/min. Rhythm is regular. OR interval is normal. QRS interval is normal. cp QT interval is normal. T waves are Inverted in lead aVR. Interpreted by me. Reviewed by me. 17:17 Rate is 59 beats/min. Rhythm is regular. OR interval is normal. QRS interval is normal. cp QT interval is normal. T waves are Inverted in lead aVR. Interpreted by me. Reviewed by me. Administered Medications: 14:15 Drug: Ketorolac 15 mg Route: IVP; Site: right antecubital; hb 15:00 Follow up: Response: No adverse reaction hb 14:15 Drug: NS 0.9% 1000 ml Route: IV; Rate: 1000 ml/hr; Site: right antecubital; hb 15:22 Follow up: Response: No adverse reaction; IV Status: Completed infusion; IV Intake: hb 1000ml 14:16 Drug: Aspirin Chewable Tablet 324 mg Route: PO; hb 15:10 Follow up: Response: No adverse reaction hb Disposition: 18:09 Co-signature as Attending Physician, Chris CAMPOS was immediately available onsite ms3 in the emergency department for consultation in the care of the patient. Disposition Summary: 04/16/22 18:08 Discharge Ordered Location: Home cp Problem: new cp Symptoms: have improved cp Condition: Stable cp Diagnosis - Chest pain, unspecified cp Followup: cp - With: Griffin Ritchie MD - When: 2 - 3 days - Reason: Recheck today's complaints Discharge Instructions: - Discharge Summary Sheet cp - Nonspecific Chest Pain, Adult cp - Aspirin and Your Heart cp Forms: - Medication Reconciliation Form cp - Thank You Letter cp - Antibiotic Education cp - Prescription Opioid Use cp Prescriptions: - Diclofenac Sodium 75 mg Oral Tablet Sustained Release - take 1 tablet by ORAL route 2 times per day; 30 tablet; Refills: 0, Product cp Selection Permitted Signatures: Dispatcher [employer] Gamal May PA PA cp Baxter, Heather RN RN Della Goldstein RN RN jl7 Chris Tomlinson DO DO ms3 Corrections: (The following items were deleted from the chart) 04/17 16:35 04/16 13:55 Onset: yesterday, cp cp
[2022-04-16 18:36] VITALS: TEMP 97.9
[2022-04-16 18:42] VITALS: O2SAT 99
[2022-04-16 18:44] VITALS: BP 124/74
--- NOTE | 2022-04-17 14:57 | EKG ---
Test Date: 2022-04-16 Test Time: 17:13:18 Electronic Maintenance Supervisor: ELEAZAR MEASUREMENT RESULTS: Intervals: Rate: 59 TN: 154 QRSD: 92 QT: 398 QTc: 394 [place]: P: 74 TN: 154 QRS: 83 T: 68 INTERPRETIVE STATEMENTS: Sinus bradycardia Otherwise normal ECG Compared to ECG 04/16/2022 14:36:43 Sinus rhythm no longer present Electronically Signed On 04-17-22 14:55:20 SURGICAL RESIDENT by Griffin Ritchie
--- NOTE | 2022-04-17 14:58 | EKG ---
Test Date: 2022-04-16 Test Time: 14:36:43 Manager Location: HB MEASUREMENT RESULTS: Intervals: Rate: 62 NE: 144 QRSD: 92 QT: 386 QTc: 391 [place]: P: 70 NE: 144 QRS: 74 T: 62 INTERPRETIVE STATEMENTS: Normal sinus rhythm Possible Left atrial enlargement Borderline ECG Compared to ECG 09/07/2020 09:09:01 No significant changes Electronically Signed On 04-17-22 14:55:27 INSECTICIDE EXPERT by Griffin Ritchie
== END 2022-04-16 18:19 | disposition home or self-care (01) ==
LOC: ER 13:23
DX: R07.89 Other chest pain (principal); F17.210 Nicotine dependence, cigarettes, uncomplicated
CPT/HCPCS: 36415; 71045; 80048; 83735; 84484; 85025; 85379; 85610; 93005; 96361; 96374; 99284; J7030

== ENCOUNTER 2022-09-24 11:26 | Emergency (ER) | payer SELFPAY ==
--- OUTSIDE RECORDS SUMMARY | 2022-09-24 11:29 | XMS REPORT | Continuity of Care Document ---
:1980 [address] [facility] [place] [place] t Address [address] [place] [address] [place] [id number] Care Team Providers Name Role Phone Unavailable [...] Clinicians Facility Department ID 2022-03-01 2022-03-01 Outpatient [facility] [id number] 13:12:45 13:12:45 [id number] [facility] Results This patient has no known results.
[2022-09-24 12:18] LABS: Absolute Lymphocytes (CBC) 1.3 K/uL (0.7-4.9); Hematocrit 43.7 % (39.6-49.0); Lymphocytes % 22.6 % (15.3-44.8); MCV 92.1 fL (80-100); MPV 8.1 fL (7.6-11.3); RBC Red Blood Cell Count 4.74 M/uL (4.33-5.43)
[2022-09-24] MEDS ORDERED: Ringers Lactate 1,000 ML IV ONE (12:21)
[2022-09-24 12:46] LABS: Specific Gravity 1.018 (1.005-1.030); Urine Bilirubin NEGATIVE (Negative); Urine Blood Negative (Negative); Urine Clarity Clear (Clear); Urine Color Yellow (Yellow); Urine Glucose NEGATIVE (Negative); Urine Protein NEGATIVE (Negative); Urine Urobilinogen Normal (Normal); Urine pH 6.5 (5.0-7.0)
[2022-09-24 12:46] LABS: ALT/SGPT 14 U/L (16-61); AST/SGOT 8 U/L (15-37); Albumin 3.6 g/dL (3.4-5.0); Alkaline Phosphatase 88 U/L (45-117); BUN Blood Urea Nitrogen 14 mg/dL (7-18); Bicarbonate 29 mEq/L (21-32); Bilirubin Direct 0.1 mg/dL (0-0.2); Bilirubin Indirect, Calculated 0.1 mg/dL (0.2-0.8); Bilirubin Total 0.2 mg/dL (0.2-1.0); Glomerular Filtration Rate 110 ml/min (=/>90); Glucose Level 108 mg/dL (74-106); Potassium 4.4 mEq/L (3.5-5.1); Protein, Total 6.7 g/dL (6.4-8.2); Sodium Level 135 mEq/L (136-145)
[2022-09-24 12:54] LABS: Barbiturates NEGATIVE (NEGATIVE); Benzodiazepines NEGATIVE (NEGATIVE); Cocaine NEGATIVE (NEGATIVE); METHAMPHETAM POSITIVE (NEGATIVE); Methadone NEGATIVE (NEGATIVE); Opiates NEGATIVE (NEGATIVE); Phencyclidine NEGATIVE (NEGATIVE); THC Cannibis POSITIVE (NEGATIVE)
--- NOTE | 2022-09-24 14:22 | ER ---
Nurse's Notes [facility] Name: Matthew Patricia Age: 42 yrs Sex: Male : 1980 Arrival Date: 09/24/2022 Time: 11:26 Bed 13 Private MD: Diagnosis: Other psychoactive substance abuse, uncomplicated Presentation: 09/24 11:39 Chief complaint: Chief complaint: Patient states: was taking kratom X 1 year, stopped iw taking it two Fridays ago, has not been eating since then, feels light headed when he stands and he missed work. 11:39 Coronavirus screen: At this time, the client does not indicate any symptoms associated iw with coronavirus-19. Ebola Screen: Patient negative for fever greater than or equal to 101.5 degrees Fahrenheit, and additional compatible Ebola Virus Disease symptoms Patient denies exposure to infectious person. Patient denies travel to an Ebola-affected area in the 21 days before illness onset. No symptoms or risks identified at this time. Initial Sepsis Screen: Does the patient meet any 2 criteria? No. Patient's initial sepsis screen is negative. Does the patient have a suspected source of infection? No. Patient's initial sepsis screen is negative. Risk Assessment: Do you want to hurt yourself or someone else? Patient reports no desire to harm self or others. Onset of symptoms was September 14, 2022. 11:39 Method Of Arrival: Ambulatory iw 11:39 Acuity: NANDA 3 iw Historical: - Allergies: 11:42 No Known Allergies; iw - Home Meds: 11:42 None [Active]; iw - PMHx: 11:42 None; iw - PSHx: 11:42 left fibula; iw - Immunization history:: Adult Immunizations unknown. - Social history:: Smoking status: . Screenin:45 [facility] ED Fall Risk Assessment (Adult) Score/Fall Risk Level 0 - 2 = Low Risk. Abuse eh3 screen: Denies threats or abuse. Denies injuries from another. Nutritional screening: No deficits noted. Tuberculosis screening: No symptoms or risk factors identified. Assessment: 11:45 General: Appears in no apparent distress. uncomfortable, Behavior is calm, cooperative, eh3 appropriate for age. Pain: Denies pain. Neuro: Level of Consciousness is awake, alert, obeys commands, Oriented to person, place, time, situation. Cardiovascular: Capillary refill < 3 seconds Patient's skin is warm and dry. Respiratory: Airway is patent Respiratory effort is even, unlabored, Respiratory pattern is regular, symmetrical. GI: Abdomen is round non-distended. : No signs and/or symptoms were reported regarding the genitourinary system. EENT: No signs and/or symptoms were reported regarding the EENT system. Derm: Skin is pink, warm \T\ dry. Musculoskeletal: Circulation, motion, and sensation intact. 12:30 Reassessment: Patient appears in no apparent distress at this time. Patient and/or eh3 family updated on plan of care and expected duration. Pain level reassessed. Patient is alert, oriented x 3, equal unlabored respirations, skin warm/dry/pink. 13:30 Reassessment: Patient appears in no apparent distress at this time. Patient and/or eh3 family updated on plan of care and expected duration. Pain level reassessed. Patient is alert, oriented x 3, equal unlabored respirations, skin warm/dry/pink. Vital Signs: 11:39 BP 128 / 82; Pulse 78; Resp 16; Temp 97.9; Pulse Ox 98% on R/A; Weight 70.31 kg; Height iw 5 ft. 10 in. ; Pain 0/10; 12:30 BP 111 / 78; Pulse 68; Resp 16; Pulse Ox 100% on R/A; eh3 13:30 BP 120 / 84; Pulse 66; Resp 16; Pulse Ox 100% on R/A; eh3 14:00 BP 116 / 78; Pulse 67; Resp 16; Pulse Ox 99% on R/A; eh3 11:39 Body Mass Index 22.24 (70.31 kg, 177.8 cm) iw 11:39 Pain Scale: Adult iw ED Course: 11:27 Patient arrived in ED. rg4 11:35 Yann Angel PA is PHCP. bri 11:36 Terence Negrete MD is Attending Physician. jmm 11:42 Triage completed. iw 11:42 Arm band placed on. iw 11:43 Yamile Mcgowan, TOAN is Primary Nurse. eh3 11:45 Patient has correct armband on for positive identification. Bed in low position. Call 3 light in reach. Side rails up X2. Pulse ox on. NIBP on. Door closed. Noise minimized. Lights dimmed. Warm blanket given. 12:10 Inserted saline lock: 20 gauge in right antecubital area, using aseptic technique. 3 Blood collected. 12:37 Urine Drug Screen Sent. eh3 12:37 Urinalysis w/ reflexes Sent. eh3 14:23 No provider procedures requiring assistance completed. IV discontinued, intact, eh3 bleeding controlled, No redness/swelling at site. Pressure dressing applied. Administered Medications: 12:29 Drug: Lactated Ringers Solution IV 1000 ml Route: IV; Rate: 1000 bolus; Site: right eh3 antecubital; 13:44 Follow up: IV Status: Completed infusion; IV Intake: 1000ml 3 Medication: 14:23 VIS not applicable for this client. 3 Intake: 13:44 IV: 1000ml; Total: 1000ml. 3 Outcome: 14:21 Discharge ordered by . bri 14:23 Discharged to home ambulatory. 3 14:23 Condition: stable 14:23 Discharge instructions given to patient, Instructed on discharge instructions, follow up and referral plans. medication usage, Demonstrated understanding of instructions, follow-up care, medications, Prescriptions given X 1. 14:30 Patient left the ED. 3 Signatures: Yann Angel PA PA jmm Williams, Irene, RN RN iw Jumana Christensen 4 Yamile Mcgowan, RN RN 3 Corrections: (The following items were deleted from the chart) 11:42 11:39 Chief complaint: xavi hurley
--- NOTE | 2022-09-24 14:22 | EDPHYS ---
Physician Documentation [facility] Name: Matthew Patricia Age: 42 yrs Sex: Male : 1980 Arrival Date: 09/24/2022 Time: 11:26 Bed 13 Private MD: ED Physician Terence Negrete Historical: - Allergies: 09/24 11:42 No Known Allergies; iw - Home Meds: 11:42 None [Active]; iw - PMHx: 11:42 None; iw - PSHx: 11:42 left fibula; iw - Immunization history:: Adult Immunizations unknown. - Social history:: Smoking status: . Vital Signs: 11:39 BP 128 / 82; Pulse 78; Resp 16; Temp 97.9; Pulse Ox 98% on R/A; Weight 70.31 kg; Height iw 5 ft. 10 in. ; Pain 0/10; 12:30 BP 111 / 78; Pulse 68; Resp 16; Pulse Ox 100% on R/A; eh3 13:30 BP 120 / 84; Pulse 66; Resp 16; Pulse Ox 100% on R/A; eh3 14:00 BP 116 / 78; Pulse 67; Resp 16; Pulse Ox 99% on R/A; eh3 11:39 Body Mass Index 22.24 (70.31 kg, 177.8 cm) iw 11:39 Pain Scale: Adult iw MDM: 11:41 Patient medically screened. [facility] 09/24 11:43 Order name: Acetaminophen; Complete Time: 12:50 [facility] 09/24 11:43 Order name: Basic Metabolic Panel; Complete Time: 12:50 [facility] 09/24 11:43 Order name: CBC with Diff; Complete Time: 12:21 [facility] 09/24 11:43 Order name: ETOH Level; Complete Time: 12:32 [facility] 09/24 11:43 Order name: Hepatic Function; Complete Time: 12:50 [facility] 09/24 11:43 Order name: PT-INR; Complete Time: 12:37 [facility] 09/24 11:43 Order name: Ptt, Activated; Complete Time: 12:37 [facility] 09/24 11:43 Order name: Salicylate; Complete Time: 12:45 [facility] 09/24 11:43 Order name: Urinalysis w/ reflexes; Complete Time: 12:50 [facility] 09/24 11:43 Order name: Urine Drug Screen; Complete Time: 12:58 [facility] 09/24 11:43 Order name: EKG; Complete Time: 11:43 [facility] 09/24 11:43 Order name: EKG - Nurse/Tech; Complete Time: 12:11 [facility] 09/24 11:43 Order name: IV Saline Lock; Complete Time: 12:11 [facility] 09/24 11:43 Order name: Labs collected and sent; Complete Time: 12:11 [facility] Administered Medications: 12:29 Drug: Lactated Ringers Solution IV 1000 ml Route: IV; Rate: 1000 bolus; Site: right 3 antecubital; 13:44 Follow up: IV Status: Completed infusion; IV Intake: 1000ml eh3 Disposition Summary: 09/24/22 14:21 Discharge Ordered Location: Home [facility] Condition: Stable [facility] Diagnosis - Other psychoactive substance abuse, uncomplicated [facility] Followup: [facility] - With: Private Physician - When: 2 - 3 days - Reason: Recheck today's complaints, Continuance of care, Re-evaluation by your physician Discharge Instructions: - Discharge Summary Sheet [facility] Forms: - Medication Reconciliation Form [facility] - Thank You Letter [facility] - Antibiotic Education [facility] - Prescription Opioid Use [facility] Prescriptions: - ondansetron 4 mg Oral Tablet,disintegrating - take 1 tablet by ORAL route every 4-6 hours As needed; 30 tablet; Refills: 0, [facility] Product Selection Permitted Signatures: Dispatcher [employer] Yann Johansen PA PA [facility] Paulina Watson, RN TOAN Yamile Mcgowan RN RN 3
[2022-09-24 14:40] VITALS: TEMP 97.9
[2022-09-24 14:59] VITALS: BP 116/78; O2SAT 99
== END 2022-09-24 14:30 | disposition home or self-care (01) ==
LOC: ER 11:26
DX: F19.10 Other psychoactive substance abuse, uncomplicated (principal)
CPT/HCPCS: 36415; 80048; 80076; 80307; 81003; 85025; 85610; 85730; 93005; G0480; J7120

== ENCOUNTER 2024-12-16 16:01 | Inpatient (IN) | payer OTHER, SELFPAY ==
[2024-12-16] MEDS: AZITHROMYCIN IV 500 MG in NA CHLORIDE 0.9% 250 ML IVPB SCH (09:00)
--- OUTSIDE RECORDS SUMMARY | 2024-12-16 16:02 | XMS REPORT | Continuity of Care Document ---
Author Name Unknown Address [address] [place] [address] [address] [place], [place] [id number] [place] [address] [place] [address] [address] [place] [address] Care Team Providers Care Water Leak Repairer Name Role Phone Unavailable Unavailable Unavailable Encounters Start Date/Time End Date/Time Encounter Type Admission Type Attending Clinicians Care Facility Care Department Encounter ID Source 2022-03-01 13:12:45 2022-03-01 13:12:45 Outpatient [facility] [id number] Mark Csatle
[2024-12-16] MEDS ORDERED: ONDANSETRON 4 MG/2 ML VIAL ONE ×2 (16:55→19:58)
[2024-12-16] MEDS ORDERED: MORPHINE 4 MG/ML SYR ONE ×2 (16:55→19:58)
[2024-12-16] MEDS ORDERED: NA CHLORIDE 0.9% 1,000 ML ONE (16:55)
[2024-12-16 17:02] LABS: Absolute Lymphocytes (CBC) 0.7 K/uL (0.7-4.9); Hematocrit 49.2 % (39.6-49.0); Hemoglobin 16.6 g/dL (13.6-17.9); MCH 29.8 pg (27.0-35.0); MCHC 33.8 g/dL (32.0-36.0); MCV 88.2 fL (80-100); MPV 8.3 fL (7.6-11.3); Nucleated RBC Absolute Count 0.0 (0-0); Nucleated Red Blood Cells % 0.1 % (0-0); RBC Red Blood Cell Count 5.58 M/uL (4.33-5.43); White Blood Count 11.20 thou/uL (4.3-10.9)
[2024-12-16 17:27] LABS: ALT/SGPT 36.0 U/L (16-61); AST/SGOT 17.0 U/L (15-37); Albumin 4.4 g/dL (3.4-5.0); Albumin/Globulin Ratio 1.2 (1.1-1.8); Alkaline Phosphatase 110.0 U/L (45-117); Anion Gap 9.1 mEq/L (5.0-15.0); BUN Blood Urea Nitrogen 15.0 mg/dL (7-18); Globulin 3.8 g/dL (2.3-3.5); Glucose Level 131.0 mg/dL (74-106); Lipase 15.0 U/L (13-75); Potassium 4.1 mEq/L (3.5-5.1)
--- NOTE | 2024-12-16 18:20 | RAD REPORT ---
EXAMINATION: CT Abdomen Pelvis W Contrast CLINICAL INDICATION: Male, 44 years old. ABD PAIN TECHNIQUE: CT abdomen and pelvis was performed, after the administration of IV contrast, as per [facility]. Axial, sagittal and coronal reconstructions were obtained. One or more of the following dose reduction techniques were used: Automated exposure control, adjustment of the mA and k V according to patient size, and iterative reconstruction. Unless otherwise specified, incidental findings do not require dedicated imaging follow-up. COMPARISON: No prior exam. FINDINGS: LOWER CHEST: Patchy confluent subselected opacification in the posterior right lower lobe, incomplete ly imaged. LIVER: Normal in size and contour. No focal lesion. BILIARY SYSTEM: No suspicious abnormalities. SPLEEN: Normal size. No focal lesion. PANCREAS: No mass, ductal dilation, or akira-pancreatic fluid. ADRENALS: Normal; no mass. KIDNEYS: Normal size and contour. No hydronephrosis. URINARY BLADDER: Unremarkable. GASTROINTESTINAL TRACT: Marked stomach distention. Diffuse small bowel distention with air-fluid leve ls, and gradual tapering of bowel caliber at the level of the terminal ileum. No evidence of free air, significant intra-abdominal free fluid, or abscess. APPENDIX: Normal appendix. LYMPH NODES: No lymphadenopathy. MUSCULOSKELETAL: No acute or suspicious osseous abnormality. ADDITIONAL FINDINGS: None. IMPRESSION: confluent subselected opacification in the posterior right lower lobe, incompletely imaged, concernin g for pneumonia. Diffuse small bowel distention with air-fluid levels, and gradual tapering of bowel caliber at the le jemal of the terminal ileum, concerning for ileus.
[2024-12-16 18:26] LABS: Blood Morphology Comment NOT SEEN (NOT SEEN); White Blood Cell Scan OK (OK)
[2024-12-16] MEDS ORDERED: AZITHROMYCIN 500 MG INJ IVPB ONE (18:53)
[2024-12-16] MEDS ORDERED: NA CHLORIDE 0.9% 250 ML ONE (18:53)
--- NOTE | 2024-12-16 19:56 | RAD REPORT ---
EXAMINATION: TWO VIEW CHEST XR CLINICAL INDICATION: Male, 44 years old. [facility] MAIN COUGH Bed Name: TECHNIQUE: 2 view radiographs of the chest were performed. COMPARISON: 04/16/2022 FINDINGS: The lungs are well inflated and clear. No pneumothorax or sizable effusion. The heart is normal in si ze. Mediastinal contours are unremarkable. IMPRESSION: No acute or significant abnormalities.
--- NOTE | 2024-12-16 20:00 | EDPHYS ---
Physician Documentation [facility] Name: Matthew Patricia Age: 44 yrs Sex: Male : 1980 Arrival Date: 12/16/2024 Time: 16:01 Bed 16 Private MD: ED Physician Shan Daigle HPI: 12/16 19:53 This 44 yrs old Male presents to ER via Ambulatory with complaints of dr5 Abdominal Pain. 19:53 The patient presents with abdominal pain. Onset: The symptoms/episode began/occurred 3 dr5 day(s) ago. The symptoms are described as sharp. Patient is a 44-year-old male with no past medical history diffuse abdominal pain diarrhea for the past 2 to 3 days. Patient denies nausea or vomiting. Patient reports that he has been attempting to drink water which makes his pain worse.. Historical: - Allergies: 16:17 No Known Allergies; hb - Home Meds: 16:17 None [Active]; hb - PMHx: 16:17 Liver Failure; hb - PSHx: 16:17 left fibula; hb - Immunization history:: Adult Immunizations unknown. - Infectious Disease History:: Denies. - Social history:: Smoking status: Patient denies any tobacco usage or history of. ROS: 19:53 Constitutional: as per hpi dr5 Exam: 19:53 Constitutional: This is a well developed, well nourished patient who is awake, alert, dr5 and in no acute distress. Head/Face: Normocephalic, atraumatic. Eyes: Pupils equal round and reactive to light, extra-ocular motions intact. Lids and lashes normal. Conjunctiva and sclera are non-icteric and not injected. Cornea within normal limits. Periorbital areas with no swelling, redness, or edema. Chest/axilla: Normal chest wall appearance and motion. Nontender with no deformity. No lesions are appreciated. Cardiovascular: Regular rate and rhythm with a normal S1 and S2. Normal PMI, no JVD. No pulse deficits. Respiratory: Lungs have equal breath sounds bilaterally, clear to auscultation. No rales, rhonchi or wheezes noted. No increased work of breathing, no retractions or nasal flaring. Abdomen/GI: Generalized tenderness to palpation. Nondistended. Back: No spinal tenderness. No costovertebral tenderness. Full range of motion. Skin: Warm, dry with normal turgor. Normal color with no rashes, no lesions, and no evidence of cellulitis. MS/ Extremity: Pulses equal, no cyanosis. Neurovascular intact. Full, normal range of motion. Neuro: Awake and alert, GCS 15, oriented to person, place, time, and situation. Cranial nerves II-XII grossly intact. Motor strength 5/5 in all extremities. Sensory grossly intact. Cerebellar exam normal. Normal gait. Vital Signs: 16:17 BP 130 / 91; Pulse 76; Resp 18; Temp 97.1(TE); Pulse Ox 100% ; Weight 74.84 kg; Height hb 5 ft. 10 in. ; Pain 9/10; 17:03 BP 121 / 77; Pulse 53; Resp 16; Pulse Ox 100% ; db 17:45 BP 103 / 81; Pulse 62; Resp 16; Pulse Ox 100% ; db 18:00 BP 107 / 78; Pulse 61; Resp 16; Pulse Ox 100% on R/A; db 19:30 BP 120 / 86; Pulse 67; Resp 18; Pulse Ox 100% on R/A; ss12 20:00 BP 100 / 71; Pulse 66; Resp 18 S; Pulse Ox 100% on R/A; ss12 21:30 BP 99 / 64; Pulse 68; Resp 16 S; Pulse Ox 99% on R/A; ss12 16:17 Body Mass Index 23.67 (74.84 kg, 177.8 cm) hb 16:17 Pain Scale: Adult hb MDM: 16:03 Medical Screening Exam initiated dr5 19:53 Differential diagnosis: appendicitis, bowel obstruction, diverticulitis, gastritis, dr5 gastroesophageal reflux disease, GI Bleed. Data reviewed: vital signs, nurses notes, lab test result(s), CBC, white blood cell count, hemoglobin, hematocrit, platelets, electrolytes, sodium, potassium, chloride, serum bicarbonate, BUN, creatinine, serum glucose. 19:57 Consideration of Admission/Observation Patient was admitted/placed on observation. dr5 Management of patient was discussed with the following: Hospitalist: Dr. Charles. Call Center Team Leader: Spoke with Dr. Melgar. Recommended NG tube if patient begins to vomit. N.p.o. and IV antibiotics. Ramón will see tomorrow. I considered the following discharge prescriptions or medication management in the emergency department I discussed and recommended Over The Counter medications, Medications were administered in the Emergency Department. See MAR. Care significantly affected by the following Social Determinants of Health: Poor access to healthcare and/or lack of insurance, Poor access to transportation, Problems related to employment. Counseling: I had a detailed discussion with the patient and/or guardian regarding the historical points, exam findings, and any diagnostic results supporting the discharge/admit diagnosis, the presence of at least one elevated blood pressure reading (>120/80) during this emergency department visit, lab results, radiology results, the need for further work-up and treatment in the hospital. Medication response: morphine relieved the patient's pain. Symptoms have resolved, Zofran relieved the patient's nausea. ED course: Will admit patient for pneumonia as well as ileus. Will give IV antibiotics, blood cultures. 12/16 16:20 Order name: CK; Complete Time: 17:30 hb 12/16 16:20 Order name: UA Rfx Hunter Cult if indicated 12/16 16:21 Order name: CBC with Diff; Complete Time: 18:26 12/16 16:21 Order name: CMP; Complete Time: 17:30 12/16 16:21 Order name: Lipase; Complete Time: 17:30 12/16 17:18 Order name: CBC Smear Scan; Complete Time: 18:26 [facility] 12/16 18:32 Order name: Blood Culture Adult (2) dr5 12/16 18:33 Order name: Lactate w/ 2H reflex if indic.; Complete Time: 19:22 dr5 12/16 21:36 Order name: CBC with Automated Diff [facility] 12/16 21:36 Order name: CBC with Automated Diff [facility] 12/16 21:36 Order name: Comprehensive Metabolic Panel [facility] 12/16 21:36 Order name: Comprehensive Metabolic Panel [facility] 12/16 16:21 Order name: CT Abd/Pelvis - IV Contrast Only; Complete Time: 18:24 hb 12/16 18:25 Order name: Chest Pa And Lat (2 Views) XRAY; Complete Time: 19:59 dr5 12/16 21:36 Order name: CONS Physician Consult [facility] 12/16 16:21 Order name: IV Saline Lock; Complete Time: 16:49 hb 12/16 16:21 Order name: Labs collected and sent; Complete Time: 16:49 hb Administered Medications: 17:00 Drug: Ondansetron IVP 4 mg IVP once; over 2 minutes Route: IVP; Site: right antecubital;db 18:14 Follow up: Response: No adverse reaction db 17:00 Drug: morphine IVP or IV 4 mg IVP once over 4 mins Route: IVP; Infused Over: 4 mins; db Site: right antecubital; 18:14 Follow up: Response: No adverse reaction; Pain is decreased db 17:00 Drug: NS 0.9% IV 1000 ml IV at 1 bolus Per protocol; to be given as a bolus over 60 db minutes Route: IV; Rate: 1 bolus; Site: right antecubital; 19:05 Follow up: Response: No adverse reaction; IV Status: Completed infusion; IV Intake: db 1000ml 18:55 Drug: AZITHromycin IVPB 500 mg IVPB once over 1 hrs; (mix in 250 mL NS) Route: IVPB; db Infused Over: 1 hrs; Site: right antecubital; 21:39 Follow up: IV Status: Completed infusion ss12 21:39 Follow up: IV Status: Infusion continued; IV Intake: 250ml ss12 19:56 Drug: morphine IVP or IV 4 mg IVP once over 4 mins Route: IVP; Infused Over: 4 mins; ss12 Site: right antecubital; 21:39 Follow up: Response: No change in condition; Anxiety decreased ss12 19:56 Drug: Ondansetron IVP 4 mg IVP once; over 2 minutes Route: IVP; Site: right antecubital;ss12 21:39 Follow up: Response: No adverse reaction; Nausea is decreased ss12 Disposition Summary: 12/16/24 20:00 Hospitalization Ordered Notes: Hospitalization Status: Inpatient Admission dr5 Provider: Joaquin Charles dr5 Location: Telemetry/MedSurg (Inpatient) dr5 Condition: Stable dr5 Problem: new dr5 Symptoms: have worsened dr5 Bed/Room Type: Standard dr5 Room Assignment: 431(12/16/24 21:54) eb1 Diagnosis - Ileus, unspecified dr5 - Abdominal pain, Generalized dr5 Forms: - Medication Reconciliation Form dr5 - SBAR form dr5 - Leadership Thank You Letter dr5 Signatures: Dispatcher [employer] EDAnita Meadows RN RN hb Basinger, Emily RN RN eb1 Teetee Mast RN RN db Zeynep Lee [facility] TELEPHONE INTERVIEWER-C TELEPHONE INTERVIEWER-Cdr5 Terri Murray, RN RN ss12 Corrections: (The following items were deleted from the chart) 18:25 18:25 Chest Pa And Lat (2 Views)+RAD.RAD.BRZ ordered. EDMS EDMS 18:33 18:33 BLOOD CULTURE*+BA.LAB.BRZ ordered. EDMS EDMS 21:42 20:00 [facility] kmf 21:54 21:[address] [place] [address]
--- NOTE | 2024-12-16 20:00 | ER ---
Nurse's Notes [facility] Name: Matthew Patricia Age: 44 yrs Sex: Male : 1980 Arrival Date: 12/16/2024 Time: 16:01 Bed 16 Private MD: Diagnosis: Ileus, unspecified;Abdominal pain, Generalized Presentation: 12/16 16:16 Chief complaint: Diffuse abdominal pain and diarrheax 2-3 days. Coronavirus screen: At this time, the client does not indicate any symptoms associated with coronavirus-19. Ebola Screen: No symptoms or risks identified at this time. Initial Sepsis Screen: Does the patient meet any 2 criteria? No. Patient's initial sepsis screen is negative. Does the patient have a suspected source of infection? No. Patient's initial sepsis screen is negative. Risk Assessment: Do you want to hurt yourself or someone else? Patient reports no desire to harm self or others. Onset of symptoms was December 14, 2024. 16:16 Method Of Arrival: Ambulatory hb 16:16 Acuity: NANDA 3 hb Historical: - Allergies: 16:17 No Known Allergies; hb - Home Meds: 16:17 None [Active]; hb - PMHx: 16:17 Liver Failure; hb - PSHx: 16:17 left fibula; hb - Immunization history:: Adult Immunizations unknown. - Infectious Disease History:: Denies. - Social history:: Smoking status: Patient denies any tobacco usage or history of. Screenin:07 [facility] ED Fall Risk Assessment (Adult) History of falling in the last 3 months, db including since admission No falls in past 3 months (0 pts) Confusion or Disorientation No (0 pts) Intoxicated or Sedated No (0 pts) Impaired Gait No (0 pts) Mobility Assist Device Used No (0 pt) Altered Elimination No (0 pt) Score/Fall Risk Level 0 - 2 = Low Risk Oriented to surroundings, Maintained a safe environment. Abuse screen: Denies threats or abuse. Denies injuries from another. Nutritional screening: No deficits noted. Tuberculosis screening: No symptoms or risk factors identified. Assessment: 16:33 Reassessment: Patient and/or family updated on plan of care and expected duration. Pain ll1 level reassessed. 17:30 Reassessment: Patient appears in no apparent distress at this time. Patient and/or db family updated on plan of care and expected duration. Pain level reassessed. Patient is alert, oriented x 3, equal unlabored respirations, skin warm/dry/pink. General: Appears in no apparent distress. comfortable, Behavior is calm, cooperative. Pain: Complains of pain in abdomen. 18:30 Reassessment: Patient appears in no apparent distress at this time. Patient and/or db family updated on plan of care and expected duration. Pain level reassessed. Patient is alert, oriented x 3, equal unlabored respirations, skin warm/dry/pink. Patient states feeling better. Patient states symptoms have improved. General: Appears in no apparent distress. comfortable, Behavior is calm, cooperative. Neuro: Level of Consciousness is awake, alert, obeys commands, Oriented to person, place, time, situation. GI:. 19:39 Reassessment:. General: Appears in no apparent distress. comfortable, Behavior is ss12 restless. Pain: Complains of pain in abdomen Pain does not radiate. Pain currently is 8 out of 10 on a pain scale. Quality of pain is described as aching, squeezing. Neuro: Level of Consciousness is awake, alert, obeys commands, Oriented to person, place, time, situation. Cardiovascular: No deficits noted. Patient's skin is warm and dry. Respiratory: No deficits noted. Airway is patent Respiratory effort is even, unlabored, Respiratory pattern is regular, symmetrical. GI: No deficits noted. No signs and/or symptoms were reported involving the gastrointestinal system. : No deficits noted. No signs and/or symptoms were reported regarding the genitourinary system. EENT: No deficits noted. No signs and/or symptoms were reported regarding the EENT system. Derm: No deficits noted. No signs and/or symptoms reported regarding the dermatologic system. Musculoskeletal: No deficits noted. No signs and/or symptoms reported regarding the musculoskeletal system. 20:04 GI: Abdomen is flat, non-distended, Bowel sounds present in right upper quadrant, left ss12 upper quadrant and right lower quadrant Abd is soft and non tender in right upper quadrant, left upper quadrant and right lower quadrant. 21:00 Reassessment: Patient appears in no apparent distress at this time. Patient and/or ss12 family updated on plan of care and expected duration. Pain level reassessed. Patient is alert, oriented x 3, equal unlabored respirations, skin warm/dry/pink. Patient states feeling better. Vital Signs: 16:17 BP 130 / 91; Pulse 76; Resp 18; Temp 97.1(TE); Pulse Ox 100% ; Weight 74.84 kg; Height hb 5 ft. 10 in. ; Pain 9/10; 17:03 BP 121 / 77; Pulse 53; Resp 16; Pulse Ox 100% ; db 17:45 BP 103 / 81; Pulse 62; Resp 16; Pulse Ox 100% ; db 18:00 BP 107 / 78; Pulse 61; Resp 16; Pulse Ox 100% on R/A; db 19:30 BP 120 / 86; Pulse 67; Resp 18; Pulse Ox 100% on R/A; ss12 20:00 BP 100 / 71; Pulse 66; Resp 18 S; Pulse Ox 100% on R/A; ss12 21:30 BP 99 / 64; Pulse 68; Resp 16 S; Pulse Ox 99% on R/A; ss12 16:17 Body Mass Index 23.67 (74.84 kg, 177.8 cm) hb 16:17 Pain Scale: Adult hb ED Course: 16:03 Patient arrived in ED. cj3 16:03 [facility]C [facility] 16:03 Shan Daigle MD is Attending Physician. dr5 16:17 Triage completed. hb 16:18 Arm band placed on. hb 16:29 Radiology exam delayed due to lab results not completed at this time. (BUN/Creatinine) jc4 IV insertion attempt and/or patient not having appropriate IV at this time. 16:33 Patient placed in an exam room, on a stretcher. ll1 16:48 Teetee Mast, RN is Primary Nurse. db 16:48 Initial lab(s) drawn, sent to lab. Inserted saline lock: 22 gauge in right antecubital db area, using aseptic technique. Blood collected. Flushed with 10 mL NS. 16:[address] via wheelchair. db 17:00 Patient moved back from CT. db 17:01 CT Abd/Pelvis - IV Contrast Only In Process Unspecified. EDMS 18:55 Patient moved back from radiology. db 18:56 Chest Pa And Lat (2 Views) XRAY In Process Unspecified. EDMS 19:50 Patient has correct armband on for positive identification. Provided Education on: plan ss12 of care. 19:50 No provider procedures requiring assistance completed. ss12 19:59 Joaquin Charles MD is Hospitalizing Provider. dr5 23:20 Patient admitted, IV remains in place. ss12 Administered Medications: 17:00 Drug: Ondansetron IVP 4 mg IVP once; over 2 minutes Route: IVP; Site: right antecubital;db 18:14 Follow up: Response: No adverse reaction db 17:00 Drug: morphine IVP or IV 4 mg IVP once over 4 mins Route: IVP; Infused Over: 4 mins; db Site: right antecubital; 18:14 Follow up: Response: No adverse reaction; Pain is decreased db 17:00 Drug: NS 0.9% IV 1000 ml IV at 1 bolus Per protocol; to be given as a bolus over 60 db minutes Route: IV; Rate: 1 bolus; Site: right antecubital; 19:05 Follow up: Response: No adverse reaction; IV Status: Completed infusion; IV Intake: db 1000ml 18:55 Drug: AZITHromycin IVPB 500 mg IVPB once over 1 hrs; (mix in 250 mL NS) Route: IVPB; db Infused Over: 1 hrs; Site: right antecubital; 21:39 Follow up: IV Status: Completed infusion ss12 21:39 Follow up: IV Status: Infusion continued; IV Intake: 250ml ss12 19:56 Drug: morphine IVP or IV 4 mg IVP once over 4 mins Route: IVP; Infused Over: 4 mins; ss12 Site: right antecubital; 21:39 Follow up: Response: No change in condition; Anxiety decreased ss12 19:56 Drug: Ondansetron IVP 4 mg IVP once; over 2 minutes Route: IVP; Site: right antecubital;ss12 21:39 Follow up: Response: No adverse reaction; Nausea is decreased ss12 Medication: 18:30 VIS not applicable for this client. db Intake: 19:05 IV: 1000ml; Total: 1000ml. db 21:39 IV: 250ml; Total: 1250ml. ss12 Outcome: 20:00 Decision to Hospitalize by Provider. dr5 23:19 Admitted to Tele accompanied by tech, via wheelchair, room 431, ss12 23:19 Condition: stable 23:20 Patient left the ED. ss12 Signatures: Dispatcher [employer] Anita Shepherd RN TOAN Celeste Avila RN RN ll1 Teetee Mast, RN RN db Freeman Ko jc4 Beck [facility], YOLETTE-C COSMETOLOGY TEACHER-[facility]5 Amee Ward cj3 Terri Murray, TOAN RN ss12 Corrections: (The following items were deleted from the chart) 16:18 16:16 Chief complaint: Diffuse abdominal pain x 2-3 days [facility] 16:51 16:40 NS 0.9% IV 1000 ml IV at 1 bolus in left hand db db 16:51 16:40 morphine IVP or IV 4 mg IVP in left hand over 4 mins db db 16:51 16:40 Ondansetron IVP 4 mg IVP in left hand db db
[2024-12-16] MEDS: NA CHLORIDE 0.9% 1,000 ML IV SCH (21:00)
--- NOTE | 2024-12-16 21:30 | P.HP ---
Certification for Inpatient Patient admitted to: Inpatient With expected LOS: >2 Midnights Practitioner: I am a practitioner with admitting privileges, knowledge of patient current condition, hospital course, and medical plan of care. Services: Services provided to patient in accordance with Admission requirements found in Title 42 Section 412.3 of the Code of Federal Regulations Patient History Date of Service: 12/16/24 Reason for admission: Abdominal pain History of Present Illness: 44 yrs old Male with no significant past medical history other than liver failure was brought to ER with abdominal pain. Pain is sharp, diffuse started 2 days ago associated with some nausea and vomiting. Denies any fever or chills. No chest pain or shortness of breath. Pain is worse with eating. Denies any radiation . No sick contacts. Patient was assessed in the ER was admitted for further management Allergies No Known Allergies Allergy (Unverified 12/16/24 20:55) Home medications list reviewed: Yes - Past Medical/Surgical History Past Medical History: Reviewed- Non-Contributory Past Surgical History: Reviewed- Non-Contributory - Family History Family History: Reviewed- Non-Contributory - Social History Smoking Status: Never smoker Review of Systems 10-point ROS is otherwise unremarkable Physical Examination - Physical Exam General: Alert, Oriented x3, Mild distress HEENT: Atraumatic, Normocephalic Neck: Supple, No Thyromegaly Respiratory: Clear to auscultation bilaterally, Normal air movement Cardiovascular: Regular rate/rhythm, Normal S1 S2 Capillary refill: <2 Seconds Gastrointestinal: W/out hepatosplenomegaly, Tenderness Musculoskeletal: No clubbing, No swelling Integumentary: No rashes Neurological: Other (Alert awake nonfocal) Lymphatics: No axilla or inguinal lymphadenopathy - Studies Laboratory Data (last 24 hrs) 12/16/24 12/16/24 16:48 16:48 WBC 11.20 H Hgb 16.6 Hct 49.2 H Plt Count 375 Sodium 139 Potassium 4.1 BUN 15 Creatinine 1.12 Glucose 131 H Total Bilirubin 0.5 AST 17 ALT 36 Alkaline Phosphatase 110 Lipase 15 Assessment and Plan - Plan Right lower lobe pneumonia Leukocytosis Will monitor CBC in a.m. Obtain cultures Started on IV antibiotic Monitor closely on telemetry. Antitussives ordered Intractable abdominal pain Diffuse small bowel distention with air-fluid levels CT Gradual tapering of bowel caliber at the level of terminal ileum Possible ileus Keep n.p.o. Continue antibiotic Surgical consult GI/DVT prophylaxis Advanced directive full code Discharge Plan: Home Plan to discharge in: 48 Hours - Advance Directives Does patient have a Living Will: No Does patient have a Durable POA for Healthcare: No - Code Status/Comfort Care Code Status: Full Code Time Spent Managing Pts Care (In Minutes): 48
[2024-12-16] MEDS ORDERED: ACETAMINOPHEN 325 MG TABLET PO PRN (21:31)
[2024-12-16] MEDS: CEFTRIAXONE 1,000 MG in NA CHLORIDE 0.9% 50 ML IVPB SCH (22:00)
[2024-12-16] MEDS ORDERED: CEFTRIAXONE 1000 MG/VIAL ONE (23:00)
[2024-12-16] MEDS: MORPHINE 2 MG/ML SYR IV PRN (23:51)
[2024-12-16] MEDS: METRONIDAZOLE 500mg IVPB 500 MG/100 ML BAG IV SCH (23:51)
[2024-12-16 23:55] LABS: Sqamous Epithelial <5 /HPF (None Seen); Urine Culture Reflex Order NOT NEEDED; Urine Microscopic Reflex YN ORDER UMIC
[2024-12-17 00:29] VITALS: BMI 23.6
[2024-12-17] MEDS ORDERED: ONDANSETRON 4 MG/2 ML VIAL IV PRN (02:00)
[2024-12-17 04:42] LABS: Absolute Lymphocytes (CBC) 1.4 K/uL (0.7-4.9); Hematocrit 38.0 % (39.6-49.0); Hemoglobin 13.3 g/dL (13.6-17.9); MCH 30.8 pg (27.0-35.0); MCHC 35.1 g/dL (32.0-36.0); MCV 87.7 fL (80-100); MPV 8.4 fL (7.6-11.3); Nucleated RBC Absolute Count 0.0 (0-0); Nucleated Red Blood Cells % 0.0 % (0-0); RBC Red Blood Cell Count 4.34 M/uL (4.33-5.43); White Blood Count 6.50 thou/uL (4.3-10.9)
[2024-12-17 04:56] LABS: ALT/SGPT 21.0 U/L (16-61); AST/SGOT 11.0 U/L (15-37); Albumin 2.8 g/dL (3.4-5.0); Albumin/Globulin Ratio 1.1 (1.1-1.8); Alkaline Phosphatase 68.0 U/L (45-117); Anion Gap 9.7 mEq/L (5.0-15.0); BUN Blood Urea Nitrogen 10.0 mg/dL (7-18); Globulin 2.5 g/dL (2.3-3.5); Glucose Level 94.0 mg/dL (74-106); Potassium 3.7 mEq/L (3.5-5.1)
--- NOTE | 2024-12-17 09:04 | RAD REPORT ---
EXAM: XR of the abdomen HISTORY: Abdominal pain Follow-up ileus COMPARISON: 12/16/2024 FINDINGS: XR of the abdomen shows a nonspecific, nonobstructive bowel gas pattern. No suspicious shawanda cifications are seen. The bones are unremarkable. IMPRESSION: Unremarkable exam
--- NOTE | 2024-12-17 09:05 | CON ---
Date of Consultation: 12/17/2024 Reason: Abdominal pain. History Of Present Illness: The patient is a 44-year-old gentleman, who presented to the emergency r o with abdominal pain and diarrhea for the last 2 to 3 days. He said the diarrhea was watery, ther e is no blood. His pain was crampy in nature, became worse, so he came to the emergency room. He wa s evaluated, was found to have pneumonia as well as ileus, and I was consulted. The patient denies a ny sore throat, runny nose, cough, headaches, dizziness, chest pain, fever, or chills. Review of Systems: Otherwise unremarkable. Past Medical History: Liver disease. Past Surgical History: Left fibula surgery. Allergies: NO ALLERGIES. Social History: The patient does not smoke currently or drink alcohol. Family History: Noncontributory. Physical Examination: Vital Signs: Stable. He is afebrile. General: He is awake, alert, oriented x3. Head and Neck: No masses. Chest: Clear. Heart: S1, S2. Abdomen: Soft, nondistended, nontender. Positive bowel sounds. Extremities: Neurovascularly intact. Neuro: Nonfocal. Imaging Data: His CT of the abdomen and pelvis reviewed, which shows marked stomach distention, diff use small bowel distention with air-fluid levels, gradual tapering bowel caliber at the level of the terminal ileum. No evidence of free fluid or abscess. Normal appendix and in the posterior right lo wer lobe, there is opacification concerning for pneumonia and abdominal findings are concerning for i leus. Laboratory Data: Reviewed. White count was 11.2 on admission, currently 6.5, and his chemistry revi ewed, essentially unremarkable. Assessment: Pneumonia, ileus, probably secondary to gastroenteritis. Recommendations: Continue hydration and antibiotics. We will check an abdominal x-ray today. Shoul d be okay, then we will begin diet on this patient, slowly advance. There is no need for any surgica l intervention at this time. /MODL Voice ID: [id number] Report ID: [id number]
--- NOTE | 2024-12-17 15:44 | P.PN ---
Date of Service: 12/17/24 Subjective: Sitting up in his chair. States he does not like being in the hospital. We discussed continuing IV antibiotics. He has not been able to eat anything yet. Review of Systems 10-point ROS is otherwise unremarkable Physical Examination - Physical Exam General: Alert, Oriented x3, Mild distress HEENT: Atraumatic, Normocephalic Neck: Supple, No Thyromegaly Respiratory: Clear to auscultation bilaterally, Normal air movement Cardiovascular: Regular rate/rhythm, Normal S1 S2 Capillary refill: <2 Seconds Gastrointestinal: W/out hepatosplenomegaly, Tenderness Musculoskeletal: No clubbing, No swelling Integumentary: No rashes Neurological: Other (Alert awake nonfocal) Lymphatics: No axilla or inguinal lymphadenopathy - Studies Laboratory Data (last 24 hrs) 12/16/24 12/16/24 16:48 16:48 WBC 11.20 H Hgb 16.6 Hct 49.2 H Plt Count 375 Sodium 139 Potassium 4.1 BUN 15 Creatinine 1.12 Glucose 131 H Total Bilirubin 0.5 AST 17 ALT 36 Alkaline Phosphatase 110 Lipase 15 Assessment and Plan - Plan Right lower lobe pneumonia Leukocytosis Will monitor CBC in a.m. Obtain cultures Continue Rocephin, azithromycin, Flagyl Monitor closely on telemetry. Antitussives ordered Ileus KUB Continue IV hydration and slowly begin diet. Keep n.p.o. Continue antibiotic Appreciate general surgery recommendation GI/DVT prophylaxis Advanced directive full code Discharge Plan: Home Plan to discharge in: 1 to 2 days - Advance Directives Does patient have a Living Will: No Does patient have a Durable POA for Healthcare: No - Code Status/Comfort Care Code Status: Full Code Time spent on the encounter, including patient evaluation, history taking, physical exam, medical decision making, coordination of care, and documentation, was 35 minutes. Time includes direct [id number] interaction with the patient and indirect time spent reviewing records, ordering tests, and discussing the care plan.
[2024-12-18 10:11] LABS: Absolute Lymphocytes (CBC) 1.1 K/uL (0.7-4.9); Hematocrit 38.0 % (39.6-49.0); Hemoglobin 13.0 g/dL (13.6-17.9); MCH 30.4 pg (27.0-35.0); MCHC 34.2 g/dL (32.0-36.0); MCV 89.1 fL (80-100); MPV 8.1 fL (7.6-11.3); Nucleated RBC Absolute Count 0.0 (0-0); Nucleated Red Blood Cells % 0.0 % (0-0); RBC Red Blood Cell Count 4.26 M/uL (4.33-5.43); White Blood Count 3.80 thou/uL (4.3-10.9)
[2024-12-18 10:30] LABS: ALT/SGPT 23.0 U/L (16-61); AST/SGOT 12.0 U/L (15-37); Albumin 2.6 g/dL (3.4-5.0); Albumin/Globulin Ratio 1.1 (1.1-1.8); Alkaline Phosphatase 58.0 U/L (45-117); Anion Gap 4.8 mEq/L (5.0-15.0); BUN Blood Urea Nitrogen 6.0 mg/dL (7-18); Globulin 2.4 g/dL (2.3-3.5); Glucose Level 97.0 mg/dL (74-106); Potassium 3.8 mEq/L (3.5-5.1)
--- NOTE | 2024-12-18 11:51 | P.PN ---
Date of Service: 12/18/24 Subjective: States he still feels a bit weak. We discussed walking around the halls today. He is now tolerating oral intake. He is voiding and moving his bowels appropriately. He denies fevers and chills. He still has a cough Review of Systems 10-point ROS is otherwise unremarkable Physical Examination - Physical Exam General: Alert, Oriented x3, Mild distress HEENT: Atraumatic, Normocephalic Neck: Supple, No Thyromegaly Respiratory: Clear to auscultation bilaterally, Normal air movement Cardiovascular: Regular rate/rhythm, Normal S1 S2 Capillary refill: <2 Seconds Gastrointestinal: W/out hepatosplenomegaly, Tenderness Musculoskeletal: No clubbing, No swelling Integumentary: No rashes Neurological: Other (Alert awake nonfocal) Lymphatics: No axilla or inguinal lymphadenopathy - Studies Laboratory Data (last 24 hrs) 12/16/24 12/16/24 16:48 16:48 WBC 11.20 H Hgb 16.6 Hct 49.2 H Plt Count 375 Sodium 139 Potassium 4.1 BUN 15 Creatinine 1.12 Glucose 131 H Total Bilirubin 0.5 AST 17 ALT 36 Alkaline Phosphatase 110 Lipase 15 Assessment and Plan - Plan Right lower lobe pneumonia Leukocytosis Will monitor CBC in a.m. Obtain cultures Continue Rocephin, azithromycin, Stop Flagyl and monitor Monitor closely on telemetry. Antitussives ordered Ileus KUB Continue IV hydration and slowly begin diet. Keep n.p.o. Continue antibiotic Appreciate general surgery recommendation Ambulate with physical therapy GI/DVT prophylaxis Advanced directive full code Discharge Plan: Home Plan to discharge in: 1 to 2 days - Advance Directives Does patient have a Living Will: No Does patient have a Durable POA for Healthcare: No - Code Status/Comfort Care Code Status: Full Code Time spent on the encounter, including patient evaluation, history taking, physical exam, medical decision making, coordination of care, and documentation, was 35 minutes. Time includes direct [id number] interaction with the patient and indirect time spent reviewing records, ordering tests, and discussing the care plan.
--- NOTE | 2024-12-18 13:10 | PN ---
Date of Progress Note: 12/18/2024 Subjective: The patient is awake, alert. He is having some crampy pain, still tolerating clear liqu ids. Objective: Vital Signs: Stable. He is afebrile. Abdomen: Soft, nondistended, nontender. Positive bowel sounds. Laboratory Data: Reviewed. White count is 6.8. There is no left shift. Chemistry is pending. Assessment: Likely gastroenteritis, slowly improving. Recommendations: Continue hydration. Advance diet as tolerated. If patient can tolerate diet, he c an be discharged home later today or tomorrow on Cipro and Flagyl. /MODL Voice ID: [id number] Report ID: [id number]
[2024-12-19] MEDS: MELATONIN 3 MG TABLET PO PRN (00:37)
--- NOTE | 2024-12-19 10:42 | PN ---
Date of Progress Note: 12/19/2024 Subjective: The patient is awake and alert. No complaint. Objective: Vital Signs: Stable. Afebrile. Abdomen: Benign. Assessment: Likely gastroenteritis. Recommendation: Patient cleared for discharge antibiotics. No need for surgical followup . /MODL Voice ID: [id number] Report ID: [id number]
--- NOTE | 2024-12-19 12:47 | P.OP ---
Date of Service: 12/19/24 Findings and Operative Technique
[2024-12-19 13:06] VITALS: O2SAT 98
[2024-12-19 16:13] VITALS: BP 104/63; TEMP 98.2
--- NOTE | 2024-12-19 17:47 | P.DS ---
Admission Date: 12/16/24 Discharge Date: 12/19/24 Disposition: ROUTINE DISCHARGE Discharge Condition: FAIR Reason for Admission: Abdominal pain Brief History of Present Illness: 44 yrs old Male with past medical history of liver failure was brought to ER due to abdominal pain with associated nausea and vomiting. No reported fever. In the ER, CT abdomen and pelvis done showed diffuse small bowel distention with air-fluid levels, and gradual tapering of bowel caliber at the level of the terminal ileum, concerning for ileus. Patient was hospitalized for further management. Hospital Course: Right lower lobe pneumonia Ileus Patient admitted to the medical floor and treated with IV Rocephin and Zithromax. He had mild leukocytosis which resolved. He was seen and evaluated by general surgery Dr. Melgar, patient diagnosed with IBS and managed medically. His abdominal pain improved significantly, patient started on a diet which he tolerated. No further intervention per Dr. Melgar. Patient has tolerated solid diet with no pain or nausea vomiting. He has flatus. No bowel obstruction per Dr. Melgar and patient is deemed stable for discharge. He is prescribed Levaquin and Flagyl to cover for any bacterial gastroenteritis and also the pneumonia. Vital Signs/Physical Exam: Temp Pulse Resp BP Pulse Ox 98.2 F 64 16 104/63 100 12/19/24 16:00 12/19/24 16:00 12/19/24 16:00 12/19/24 16:12/19/24 16:00 General: Alert, In no apparent distress, Oriented x3 HEENT: Atraumatic, Mucous membr. moist/pink Neck: Supple, JVD not distended Respiratory: Clear to auscultation bilaterally, Normal air movement Cardiovascular: No edema, Regular rate/rhythm Gastrointestinal: Normal bowel sounds, Soft and benign, Non-distended, No tenderness Musculoskeletal: No swelling, No tenderness Integumentary: No rashes, No cyanosis Neurological: Normal strength at 5/5 x4 extr Laboratory Data at Discharge: WBC 3.80 thou/uL (4.3-10.9) L 12/18/24 10:01 Hgb 13.0 g/dL (13.6-17.9) L 12/18/24 10:01 Hct 38.0 % (39.6-49.0) L 12/18/24 10:01 Plt Count 284 thou/uL (152-406) 12/18/24 10:01 Sodium 141 mEq/L (136-145) 12/18/24 10:01 Potassium 3.8 mEq/L (3.5-5.1) 12/18/24 10:01 BUN 6 mg/dL (7-18) L 12/18/24 10:01 Creatinine 0.85 mg/dL (0.70-1.30) 12/18/24 10:01 Glucose 97 mg/dL (74-106) 12/18/24 10:01 Total Bilirubin 0.2 mg/dL (0.2-1.0) 12/18/24 10:01 AST 12 U/L (15-37) L 12/18/24 10:01 ALT 23 U/L (16-61) 12/18/24 10:01 Alkaline Phosphatase 58 U/L (45-117) 12/18/24 10:01 Lipase 15 U/L (13-75) 12/16/24 16:48 Home Medications: levoFLOXacin [Levaquin] 750 mg PO DAILY #7 tab 12/19/24 metroNIDAZOLE [Flagyl] 500 mg PO Q8H #21 tab 12/19/24 New Medications: Ciprofloxacin HCl [Cipro 500 MG Tablet] 500 mg PO BID #14 tab metroNIDAZOLE [Flagyl] 500 mg PO Q8H #21 tab Diet: Regular Activity: Ad oc Followup: NONE,NONE [Primary Care Provider] - Time spent managing pt's care (in minutes): 36
== END 2024-12-19 18:37 | disposition home or self-care (01) | DRG 388 ==
LOC: ER 16:01 → ERHOLD 21:31 → 4TH 22:38
PROVIDERS: ADMIT Family Medicine; ATTEND Internal Medicine
DX: K56.7 Ileus, unspecified (principal); J18.9 Pneumonia, unspecified organism; K58.0 Irritable bowel syndrome with diarrhea
CPT/HCPCS: 36415; 71046; 74019; 74177; 80053; 81001; 82550; 82565; 83605; 83690; 84145; 85025; 87040; 96361; 96365; 96366; 96375; 97161; 99285; J0456; J0696; J2270; J2405; J7030; J7050; Q9967